=== PATIENT | male | born 1960 | race African-American/Black ===

== ENCOUNTER 2019-07-19 06:37 | Inpatient (IN) | payer OTHER ==
[2019-07-19 08:13] LABS: BASO % 0.5 % (0-2.0); EOS % 2.3 % (0-4.5); HEMATOCRIT 34.4 % (35.4-49); HEMOGLOBIN 11.3 GM/dL (11.7-16.9); LYMPH % 19.7 % (8-40); MCH 25.3 pg (25.7-33.7); MCHC 32.8 g/dl (32.0-35.9); MEAN CELL VOLUME 77.1 fl (80-96); MEAN PLT VOLUME 7.8 fl (7.5-11.1); NEUT % 67.5 % (42.8-82.8); PLATELET COUNT 256 K/MM3 (134-434); RBC 4.47 M/mm3 (4.00-5.60); RDW 14.9 % (11.9-15.9); WHITE BLOOD COUNT 7.8 K/mm3 (4.0-10.0)
--- NOTE | 2019-07-19 08:26 | PDOC ---
Documentation entered by Billy Ramsey SCRIBE, acting as scribe for Kang Infante MD. Kang Infante MD: This documentation has been prepared by the Braulio ryan Daniel, SCRIBE, under my direction and personally reviewed by me in its entirety. I confirm that the documentation accurately reflects all work, treatment, procedures, and medical decision making performed by me. History of Present Illness - General Chief Complaint: Wound Stated Complaint: L FOOT PAIN Time Seen by Provider: 07/19/19 07:29 History Source: Patient, Spouse Exam Limitations: No Limitations - History of Present Illness Initial Comments: 07/19/19 07:43 The patient is a 59 year old male with a past medical history of diabetes and HTN here today for evaluation of left foot blister. The patient reports that he developed a left foot blister 2-3 weeks ago which he attributes to walking at work and notes walking with wet socks. He notes pain in his left foot while walking and reports soaking the foot in water and epsom salt which provided no relief. Patient denies headache, lightheadedness. Denies fever, chills. Allergies: NKA Social history: Denies tobacco and alcohol use. PCP: Dilip Rodriguez Past History - Past Medical History Allergies/Adverse Reactions: Allergies Allergy/AdvReac Type Severity Reaction Status Date / Time No Known Allergies Allergy Verified 07/19/19 07:11 COPD: No Diabetes: Yes - Psycho Social/Smoking Cessation Hx Smoking History: Never smoked Review of Systems - Review of Systems Able to Perform ROS?: Yes Comments:: 07/19/19 07:43 CONSTITUTIONAL: No fever, no chills, no fatigue EYES: No visual changes ENT: No ear pain, no sore throat CARDIOVASCULAR: No chest pain, no palpitations RESPIRATORY: No cough, no SOB GI: No abdominal pain, no nausea, no vomiting, no constipation, no diarrhea GENITOURINARY: No dysuria, no frequency, no hematuria MUSKULOSKELETAL: No backpain, no joint pain, no myalgias SKIN: +left foot blister NEURO: No headache *Physical Exam - Vital Signs Last Vital Signs Temp Pulse Resp BP Pulse Ox 98.1 F 69 16 166/75 97 07/19/19 07:07 07/19/19 07:07 07/19/19 07:07 07/19/19 07:07 07/19/19 07:07 - Physical Exam Comments: 07/19/19 07:43 CONSTITUTIONAL: Well-appearing; well-nourished; in no apparent distress HEAD: Normocephalic; atraumatic EYES: PERRL; EOM intact ENMT: External appears normal; normal oropharynx NECK: Supple; non-tender; no cervical lymphadenopathy CARD: Normal S1, S2; no murmurs, rubs, or gallops RESP: Normal chest excursion with respiration; breath sounds clear and equal bilaterally; no wheezes, rhonchi, or rales ABD: Soft, non-distended; non-tender; no palpable organomegaly, no palpable hernias EXT: L. Foot: approx 7cm wound to the plantar aspect of the forefoot (below the first MTP joint), consisting of a large callus with a central ulcer, draining small amount of serous foul smelling fluid, surrounded by hemorrhagic bullae. Dorsalis pedis/tibialis posterior are +2; cap refill is within normal limits; right foot: No evidence of callus formation or ulcerations. Dorsalis pedis/tibialis posterior +2. SKIN: Warm, dry, no rash NEURO: No focal neurological deficiencies. ED Treatment Course - LABORATORY CBC & Chemistry Diagram: 07/19/19 08:00 07/19/19 08:00 - ADDITIONAL ORDERS Additional order review: 07/19/19 08:00 RBC 4.47 MCV 77.1 L MCHC 32.8 RDW 14.9 MPV 7.8 Neutrophils % 67.5 Lymphocytes % 19.7 Monocytes % 10.0 Eosinophils % 2.3 Basophils % 0.5 - RADIOLOGY Radiology Studies Ordered: Category Date Time Status CHEST - PA [RAD] Stat Radiology 07/19/19 07:41 Ordered FOOT-LEFT [RAD] Stat Radiology 07/19/19 07:39 Ordered Medical Decision Making - Medical Decision Making 07/19/19 09:18 Patient is a well-appearing 59-year-old male with history of diabetes and hypertension who presents with a large left foot diabetic wound. Patient's wound consists of a large callus with a central ulceration draining foul- smelling fluid with surrounding hemorrhagic bullae; will rule out osteomyelitis. Will obtain CBC/CMP/ESR/CRP. Will obtain left foot x-ray to evaluate for bone erosion/subcutaneous air. Likely admission for IV antibiotics. Discharge - Discharge Information Problems reviewed: Yes Clinical Impression/Diagnosis: Osteomyelitis Qualifiers: Osteomyelitis type: unspecified type Osteomyelitis location: foot Laterality: left Qualified Code(s): M86.9 - Osteomyelitis, unspecified Diabetic foot ulcer Qualifiers: Diabetic foot ulcer location: unspecified part of foot Diabetes mellitus type: other specified (including ELSI) Laterality: left Non-pressure ulcer stage: unspecified non-pressure ulcer stage Qualified Code(s): E13.621 - Other specified diabetes mellitus with foot ulcer; L97.529 - Non-pressure chronic ulcer of other part of left foot with unspecified severity Condition: Fair - Admission Yes - Follow up/Referral Referrals: Dilip Rodriguez MD [Primary Care Provider] - - Patient Discharge Instructions - Post Discharge Activity
[2019-07-19 08:38] LABS: INR 1.03 (0.83-1.09); PROTHROMBIN TIME (PATIENT) 12.2 SEC (9.7-13.0)
[2019-07-19 08:44] LABS: ALBUMIN 3.6 g/dl (3.4-5.0); BILIRUBIN,TOTAL 0.9 mg/dL (0.2-1); BLOOD UREA NITROGEN 20.6 mg/dL (7-18); CALCIUM 8.9 mg/dL (8.5-10.1); CREATININE 1.5 mg/dL (0.55-1.3); POTASSIUM 3.8 mmol/L (3.5-5.1); TOT PROT 7.5 g/dl (6.4-8.2)
[2019-07-19] MEDS ORDERED: PIPERACILLIN/TAZOB 3.375 GM 3.375 GM in DEXTROSE 5%-WATER - 50 ML IVPB ONE (10:24)
[2019-07-19] MEDS ORDERED: VANCOMYCIN HCL 1,500 MG in DEXTROSE 5%-WATER - 500 ML IVPB ONE (10:41)
[2019-07-19] MEDS ORDERED: PIPERACILLIN/TAZOB 3.375 GM 3.375 GM/50 ML BAG IVPB ONE (11:34)
[2019-07-19] MEDS ORDERED: VANCOMYCIN 1 GRAM (PRE-DOCKED) 1,000 MG/250 ML BAG IVPB ONE (12:05)
--- NOTE | 2019-07-19 12:10 | EKG ---
Test Reason : Blood Pressure : / mmHG Vent. Rate : 065 BPM Atrial Rate : 065 BPM P-R Int : 188 ms QRS Dur : 078 ms QT Int : 402 ms P-R-T Axes : 048 004 240 degrees QTc Int : 418 ms POOR DATA QUALITY, INTERPRETATION MAY BE ADVERSELY AFFECTED NORMAL SINUS RHYTHM T WAVE ABNORMALITY, CONSIDER INFEROLATERAL ISCHEMIA ABNORMAL ECG NO PREVIOUS ECGS AVAILABLE Confirmed by FRANCINE BALLESTEROS, KHALIF ([id number]) on 07/19/2019 12:09:39 PM Referred By: Confirmed By:KHALIF ESCAMILLA MD
--- NOTE | 2019-07-19 13:14 | HP ---
Admitting History and Physical - Primary Care Physician PCP: Dilip Rodriguez - Admission Chief Complaint: Left Foot Pain History of Present Illness: Patient is a 59 y/o male with past medical history of DM and HTN. Patient present to [facility] ER after having left foot pain and ulcer to bottom of left foot. Prior to ER arrival he said he did not notice that he had an ulcer. Patient states experiencing a throbbing pain to left foot over two weeks that worsened yesterday. He also states noticing a foul smell from his foot 2-3 days ago. Pain exacerbated by pressure and alleviated by Aleve. History Source: Patient Limitations to Obtaining History: No Limitations - Past Medical History Cardiovascular: Yes: HTN Endocrine: Yes: Diabetes Mellitus - Past Surgical History Past Surgical History: Yes: Cataract Removal - Smoking History Smoking history: Never smoked - Social History Usual Living Arrangement: Yes: With Spouse ADL: Independent History of Recent Travel: No Home Medications - Allergies Allergies/Adverse Reactions: Allergies Allergy/AdvReac Type Severity Reaction Status Date / Time No Known Allergies Allergy Verified 07/19/19 07:11 - Home Medications Home Medications: Ambulatory Orders Insulin (Novolog) [Novolog] 0 units SQ TID 07/19/19 Insulin Degludec [Tresiba Flextouch U-100] 60 unit SQ AM 07/19/19 Lisinopril/Hydrochlorothiazide [Lisinopril-Hctz 20-12.5 mg Tab] 1 tab ONCE 07/19 Review of Systems - Review of Systems Constitutional: reports: No Symptoms Eyes: reports: No Symptoms HENT: reports: No Symptoms Neck: reports: No Symptoms Cardiovascular: reports: No Symptoms Respiratory: reports: No Symptoms Gastrointestinal: reports: No Symptoms Genitourinary: reports: No Symptoms Breasts: reports: No Symptoms Reported Musculoskeletal: reports: No Symptoms Integumentary: reports: Wound (bottom left foot), Other (echhymosis) Neurological: reports: No Symptoms Endocrine: reports: No Symptoms Hematology/Lymphatic: reports: No Symptoms Psychiatric: reports: No Symptoms Physical Examination Vital Signs: Vital Signs Temperature 97.7 F 07/19/19 12:35 Pulse Rate 60 07/19/19 12:35 Respiratory Rate 18 07/19/19 12:35 Blood Pressure 134/73 07/19/19 12:35 O2 Sat by Pulse Oximetry (%) 96 07/19/19 12:35 Constitutional: Yes: No Distress, Calm Eyes: Yes: Conjunctiva Clear HENT: Yes: Atraumatic Cardiovascular: Yes: Regular Rate and Rhythm Respiratory: Yes: Regular, CTA Bilaterally Gastrointestinal: Yes: Normal Bowel Sounds, Soft Musculoskeletal: Yes: WNL Extremities: Yes: WNL Edema: No Integumentary: Yes: Other (wound to bottom left foot, ecchymosis and edema noted ) Wound/Incision: Yes: Open to air Neurological: Yes: Alert, Oriented Psychiatric: Yes: Alert, Oriented Labs: CBC, BMP 07/19/19 08:00 07/19/19 08:00 Problem List - Problems (1) HTN (hypertension) Assessment/Plan: -Lisinopril, HCTZ -low Na diet Code(s): I10 - ESSENTIAL (PRIMARY) HYPERTENSION (2) Diabetes mellitus Assessment/Plan: -BGM ACHS -ISS -Endocrinology consult -HgA1c -diabetic diet Code(s): E11.9 - TYPE 2 DIABETES MELLITUS WITHOUT COMPLICATIONS (3) Diabetic foot ulcer Assessment/Plan: -Podiatry consult -ID consult -received Vancomycin and Zosyn in ER -no leukocytosis -afebrile -BC and wound culture pending -foot xray pending Code(s): E11.621 - TYPE 2 DIABETES MELLITUS WITH FOOT ULCER; L97.509 - NON- PRESSURE CHRONIC ULCER OTH PRT UNSP FOOT W UNSP SEVERITY Qualifiers: Diabetic foot ulcer location: unspecified part of foot Diabetes mellitus type: other specified (including ELSI) Laterality: left Non-pressure ulcer stage: unspecified non-pressure ulcer stage Qualified Code(s): E13.621 - Other specified diabetes mellitus with foot ulcer; L97.529 - Non-pressure chronic ulcer of other part of left foot with unspecified severity (4) Osteomyelitis Assessment/Plan: -Podiatry consult -ID consult -received Vancomycin and Zosyn in ER -no leukocytosis -afebrile -BC and wound culture pending -foot xray pending Code(s): M86.9 - OSTEOMYELITIS, UNSPECIFIED Qualifiers: Osteomyelitis type: unspecified type Osteomyelitis location: foot Laterality: left Qualified Code(s): M86.9 - Osteomyelitis, unspecified Assessment/Plan see problem list dvt ppx
--- NOTE | 2019-07-19 15:23 | PN ---
Progress Note (short form) - Note Progress Note: ID consult dictated imp/reccd diabetic foot infection with abscess, r/o osteo handy need podiatry to see to drain abscess get xray of foot and MRI r/o osteo vancomycin and zosyn ordered will follow sent wound culture of the foot spoke with music composition teacher Problem List - Problems (1) Diabetic foot infection Code(s): E11.628 - TYPE 2 DIABETES MELLITUS WITH OTHER SKIN COMPLICATIONS; L08.9 - LOCAL INFECTION OF THE SKIN AND SUBCUTANEOUS TISSUE, UNSP (2) Abscess Code(s): L02.91 - CUTANEOUS ABSCESS, UNSPECIFIED (3) Renal insufficiency Code(s): N28.9 - DISORDER OF KIDNEY AND URETER, UNSPECIFIED
[2019-07-19] MEDS ORDERED: ACETAMINOPHEN 325 MG TABLET (FP) PO PRN (15:34)
[2019-07-19] MEDS ORDERED: HYDROCHLOROTHIAZIDE 25 MG TABLET (FP) ONE (15:52)
[2019-07-19] MEDS: LISINOPRIL 20 MG TABLET (FP) PO SCH (16:05)
[2019-07-19] MEDS: HYDROCHLOROTHIAZIDE 12.5 MG CAPSULE (FP) PO SCH (16:05)
--- NOTE | 2019-07-19 16:16 | CONS ---
DATE OF CONSULTATION: DATE OF DICTATION: 07/19/2019 INFECTIOUS DISEASE CONSULTATION REQUESTING PHYSICIAN: Hospitalist Service CONSULTING PHYSICIAN: Chloé Chavira M.D. HISTORY OF PRESENT ILLNESS: This is a 59-year-old man with past medical history of diabetes. He presents to the emergency room with a 3-week history of worsening callus on the plantar surface of his left foot. He got new sneakers over the weekend and developed worsening pain and edema of the leg. 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 He wears boots. He was this weekend on Wednesday went to a wedding with his , and he danced all night. He is on his feet a lot. He has no fevers or chills. He otherwise feels well. No known drug allergies. He is followed by Dr. Rodriguez as an outpatient. PAST MEDICAL HISTORY: Notable for diabetes and hypertension. SURGICAL HISTORY: Negative. ALLERGIES: No known drug allergies. MEDICATION : He takes lisinopril, hydrochlorothiazide, and insulin as an outpatient. SOCIAL HISTORY: He is not a cigarette smoker. There is no history of substance use. He is . REVIEW OF SYSTEMS: No nausea, vomiting, diarrhea, or dysuria. Symptoms are limited to his foot. He has not seen a vulcanizer rubber plate recently, and he has not been to an tool repairer recently. PHYSICAL EXAMINATION: Vital Signs: He is afebrile. Temperature 98.4, pulse is 64, blood pressure 157/71, respiratory rate 20, saturating 99%. He reports his weight is 104 kg. HEENT: Normocephalic. Eyes are anicteric. Neck: Supple. Lungs: Clear to auscultation. Heart: Regular rate and rhythm. Abdomen: Soft, nontender. Extremities: Notable for, he has bilateral dorsalis pedis pulses. On the left foot on the sole he has a callus, for which he has a small opening that is draining some seropurulent drainage. Below the callus, he has an adjacent abscess that is about 2 cm in diameter that is not drained. LABORATORY: His white count is 7.8, hemoglobin 11.3, platelets are 256, sedimentation rate is 53, INR is 1, BUN and creatinine are 20 and 1.5, CRP is 6.8. Cultures are pending. We did a wound culture of the foot. X-ray of the foot is pending as well. IMPRESSION: 1. In summary this is a 59-year-old man with a diabetic foot infection with abscess, possible osteo, and acute kidney injury with creatinine of 1.5. We need podiatry to see and drain the abscess. I spoke with Dr. Alonso, who will be in this evening to see the patient. 2. X-ray of foot and MRI are pending, will follow up. Cultures have been sent. Will continue vancomycin and Zosyn. Further recommendations to follow. CHLOÉ CHAVIRA M.D. [id number]
[2019-07-19] MEDS ORDERED: PIPERACILLIN/TAZOBACTAM 4.5 GM VIAL IVPB ONE (18:07)
[2019-07-19] MEDS ORDERED: DEXTROSE 5%-WATER 100 ML IVPB ONE (18:08)
[2019-07-19 18:18] VITALS: BMI 30.3
[2019-07-19] MEDS: PIPERACILLIN/TAZOB 4.5 GM 4.5 GM in DEXTROSE 5%-WATER 100 ML IVPB SCH (18:46)
[2019-07-19] MEDS: INSULIN SLIDING SCALE (NOVOLOG) 1 VIAL SQ SCH ×2 (18:46→21:23)
--- NOTE | 2019-07-19 19:51 | CONSULT ---
Consult Consult Specialty:: Podiatry, Kiet Alonso DPM Reason for Consultation:: Ulcer and cellulitis left plantar first metatarsal head - History of Present Illness Chief Complaint: Ulcer left foot with cellulitis History of Present Illness: Patient reports that he was admitted today with infection and ulcer inferior to the left first metatarsal head. Patient was accompanied by his during the interview. Patient reports the duration of the wound could not have been more than 2 to 3 days. 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 Patient denies any trauma and does not know how he developed the wound - History Source History Provided By: Medical Record (Medical History deferred to admitting physician.) - Past Medical History Cardio/Vascular: Yes: HTN Endocrine: Yes: Diabetes Mellitus - Past Surgical History Past Surgical History: Yes: Cataract Removal - Alcohol/Substance Use Hx Alcohol Use: No - Smoking History Smoking history: Never smoked - Social History ADL: Independent History of Recent Travel: No Home Medications - Allergies Allergies/Adverse Reactions: Allergies Allergy/AdvReac Type Severity Reaction Status Date / Time No Known Allergies Allergy Verified 07/19/19 07:11 - Home Medications Home Medications: Ambulatory Orders Insulin (Novolog) [Novolog] 0 units SQ TID 07/19/19 Insulin Degludec [Tresiba Flextouch U-100] 60 unit SQ AM 07/19/19 Lisinopril/Hydrochlorothiazide [Lisinopril-Hctz 20-12.5 mg Tab] 1 tab ONCE 07/19 Physical Exam Vital Signs: Vital Signs Temperature 98.1 F 07/19/19 18:18 Pulse Rate 70 07/19/19 18:18 Respiratory Rate 20 07/19/19 18:18 Blood Pressure 153/95 07/19/19 18:18 O2 Sat by Pulse Oximetry (%) 99 07/19/19 18:18 Extremities: Yes: Other (Patient shows high arch foot with prominence of the first and fifth metatarsals and hammering of the toes.) Peripheral Pulses WNL: Yes (Pedal pulses palpable but X-ray shows medial sclerosis of the vessels) Wound/Incision: Yes: Other (left foot plantar wound extends through superficial fascia inferior to the tibial sessamoid. the wound is undemined in the periphery approx 1cm. Joint capsule and bone are not palpable in the wound. Wound extends sub fascia proximal below the metatarsal neck and has caused 4cm ramona of full thickness necrosis. Yellow Purulence was expressed from the wound. Angel-wound tissue shows no sign of erythema, edema, temp increase. Temp gradient is normal.) Labs: CBC, BMP 07/19/19 08:00 07/19/19 08:00 Imaging - Results X-ray: Image Reviewed (Left foot x-ray was reviewed by me today. It showed medial sclerosis of foot vessels. it showed no sign of angel-ostitis or erosion of bone at the tibial sesamoid directly below the wound. 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 Local infection is noted without sign of cellulitis in the leg. Bone infection is unlikely based on x-ray of the foot and history of the duration of the wound. It is likely that the MRI will show tibial sesamoid bone marrow edema secondary to physical trauma during ambulation. Bone infection is unlikely. OR debridement is necessary as undermining and resection of full thickness necrosis proximal to the ulceration cannot be completed at the bedside. Treatment Using sterile instrumentation debridement of the wound was completed removing all overlying hyperkeratotic tissue covering the wound. Removal of viable tissue and proximal necrotic tissue could not be completed at the bedside. Swab culture was taken of yellow purulence expressed from the primary wound below the tibial sesamoid. Sterile dressing was applied to the left foot. Counseling Patient and his were counseled on the above findings. I explained that wound would need to be excised in the operating room. I explained that MRI will likely be positive but that does not mean we will be removing any bone. It does mean that we will be using [facility] and possibly IV antibiotics. I further explained the wound will be much bigger following removal of all non-viable tissue and we will institute wound healing protocols at a wound center following discharge. Plan 1. NPO after midnight. Hold diabetic medication tonight and tomorrow and give all others with sip of water. 2. BgM tomorrow at 7:00 am and prior to transport for surgery tomorrow. 2. Request sliding scale for insulin dosage from primary and follow tomorrow if blood glucose is over 250mg% 3. OR excision of wound tomorrow following medical clearance. 4. Plan to provide deep tissue culture for accurate antiobiosis following surgery. Thank you for the consultation. Kiet Alonso DPM [phone]
[2019-07-19] MEDS ORDERED: FLU VACCINE QUAD 60 MCG/0.5 ML (MDV 19-20) IM ONE (20:00)
[2019-07-19] MEDS: HEPARIN NA (PORCINE) 5,000 UNITS/ML 1ML VIAL SQ SCH (21:22)
--- NOTE | 2019-07-20 00:27 | CONSULT ---
Consult Consult Specialty:: endocrine Referred by:: becka townsend Reason for Consultation:: uncontrolled dm - History of Present Illness Chief Complaint: high sugars History of Present Illness: 59 y/o male with past medical history of T2DM and HTN. Patient presented to [facility] ER for ulcer to bottom of left foot. Patient states experiencing a throbbing pain to left foot over two weeks and has had fowel smell from the blister.he also has had elevated blood sugars,frequent urination. denies fever chills,nausea or vomiting. - Past Medical History Cardio/Vascular: Yes: HTN Endocrine: Yes: Diabetes Mellitus - Past Surgical History Past Surgical History: Yes: Cataract Removal - Alcohol/Substance Use Hx Alcohol Use: No - Smoking History Smoking history: Never smoked - Social History ADL: Independent History of Recent Travel: No Home Medications - Allergies Allergies/Adverse Reactions: Allergies Allergy/AdvReac Type Severity Reaction Status Date / Time No Known Allergies Allergy Verified 07/19/19 07:11 - Home Medications Home Medications: Ambulatory Orders Insulin (Novolog) [Novolog] 0 units SQ TID 07/19/19 Insulin Degludec [Tresiba Flextouch U-100] 60 unit SQ AM 07/19/19 Lisinopril/Hydrochlorothiazide [Lisinopril-Hctz 20-12.5 mg Tab] 1 tab ONCE 07/19 Review of Systems - Review of Systems Constitutional: reports: Weakness Eyes: reports: No Symptoms HENT: reports: No Symptoms Neck: reports: No Symptoms Cardiovascular: reports: No Symptoms Respiratory: reports: No Symptoms Gastrointestinal: reports: No Symptoms Genitourinary: reports: Frequency Integumentary: reports: No Symptoms Neurological: reports: Numbness, Weakness Endocrine: reports: No Symptoms Physical Exam Vital Signs: Vital Signs Temperature 98.3 F 07/19/19 22:17 Pulse Rate 63 07/19/19 22:17 Respiratory Rate 20 07/19/19 22:17 Blood Pressure 165/80 07/19/19 22:17 O2 Sat by Pulse Oximetry (%) 100 07/19/19 21:00 Constitutional: Yes: Anxious Eyes: Yes: EOM Intact HENT: Yes: Normocephalic Neck: Yes: Trachea Midline Cardiovascular: Yes: Regular Rate and Rhythm Respiratory: Yes: CTA Bilaterally Gastrointestinal: Yes: Normal Bowel Sounds ...Rectal Exam: Yes: Deferred Renal/: Yes: WNL Musculoskeletal: Yes: Joint Swelling, Muscle Pain, Muscle Weakness Extremities: Yes: Delayed Capillary Refill Edema: No Wound/Incision: Yes: Dressing Dry and Intact Labs: CBC, BMP 07/19/19 08:00 07/19/19 08:00 Problem List - Problems (1) Diabetes mellitus type 2 with hyperosmolarity, uncontrolled Code(s): E11.00 - TYPE 2 DIAB W HYPROSM W/O NONKET HY[facility]GLY[facility]OS [facility] E11.65 - TYPE 2 DIABETES MELLITUS WITH HYPERGLYCEMIA (2) Diabetes mellitus Code(s): E11.9 - TYPE 2 DIABETES MELLITUS WITHOUT COMPLICATIONS Qualifiers: Diabetes mellitus complication status: with diabetic arthropathy (3) Diabetic foot ulcer Code(s): E11.621 - TYPE 2 DIABETES MELLITUS WITH FOOT ULCER; L97.509 - NON- PRESSURE CHRONIC ULCER OTH PRT UNSP FOOT W UNSP SEVERITY Qualifiers: Diabetic foot ulcer location: unspecified part of foot Diabetes mellitus type: other specified (including ELSI) Laterality: left Non-pressure ulcer stage: unspecified non-pressure ulcer stage Qualified Code(s): E13.621 - Other specified diabetes mellitus with foot ulcer; L97.529 - Non-pressure chronic ulcer of other part of left foot with unspecified severity (4) HTN (hypertension) Code(s): I10 - ESSENTIAL (PRIMARY) HYPERTENSION (5) Osteomyelitis Code(s): M86.9 - OSTEOMYELITIS, UNSPECIFIED Qualifiers: Osteomyelitis type: unspecified type Osteomyelitis location: foot Laterality: left Qualified Code(s): M86.9 - Osteomyelitis, unspecified Assessment/Plan Current Active Problems Diabetes mellitus (Acute) Diabetes mellitus type 2 with hyperosmolarity, uncontrolled (Acute) Diabetic foot ulcer (Acute) HTN (hypertension) (Acute) Osteomyelitis (Acute) Abnormal Lab Results 07/19/19 07/19/19 07/19/19 08:00 08:00 08:00 Hgb 11.3 L Hct 34.4 L MCV 77.1 L MCH 25.3 L ESR Anion Gap 6 L BUN 20.6 H Creatinine 1.5 H Random Glucose 65 L C-Reactive Protein 6.8 H 07/19/19 08:00 Hgb Hct MCV MCH ESR 53 H Anion Gap BUN Creatinine Random Glucose C-Reactive Protein Laboratory Results - last 24 hr 07/19/19 07/19/19 07/19/19 08:00 08:00 08:00 WBC 7.8 RBC 4.47 Hgb 11.3 L Hct 34.4 L MCV 77.1 L MCH 25.3 L MCHC 32.8 RDW 14.9 Plt Count 256 MPV 7.8 Absolute Neuts (auto) 5.3 Neutrophils % 67.5 Lymphocytes % 19.7 Monocytes % 10.0 Eosinophils % 2.3 Basophils % 0.5 Nucleated RBC % 0 ESR PT with INR INR Sodium 139 Potassium 3.8 Chloride 104 Carbon Dioxide 29 Anion Gap 6 L BUN 20.6 H Creatinine 1.5 H Est GFR (CKD-EPI)AfAm 57.82 Est GFR (CKD-EPI)NonAf 49.88 POC Glucometer Random Glucose 65 L Calcium 8.9 Total Bilirubin 0.9 AST 20 ALT 30 Alkaline Phosphatase 75 C-Reactive Protein 6.8 H Total Protein 7.5 Albumin 3.6 07/19/19 07/19/19 07/19/19 08:00 08:00 16:48 WBC RBC Hgb Hct MCV MCH MCHC RDW Plt Count MPV Absolute Neuts (auto) Neutrophils % Lymphocytes % Monocytes % Eosinophils % Basophils % Nucleated RBC % ESR 53 H PT with INR 12.20 INR 1.03 Sodium Potassium Chloride Carbon Dioxide Anion Gap BUN Creatinine Est GFR (CKD-EPI)AfAm Est GFR (CKD-EPI)NonAf POC Glucometer 209 Random Glucose Calcium Total Bilirubin AST ALT Alkaline Phosphatase C-Reactive Protein Total Protein Albumin 07/19/19 20:53 WBC RBC Hgb Hct MCV MCH MCHC RDW Plt Count MPV Absolute Neuts (auto) Neutrophils % Lymphocytes % Monocytes % Eosinophils % Basophils % Nucleated RBC % ESR PT with INR INR Sodium Potassium Chloride Carbon Dioxide Anion Gap BUN Creatinine Est GFR (CKD-EPI)AfAm Est GFR (CKD-EPI)NonAf POC Glucometer 229 Random Glucose Calcium Total Bilirubin AST ALT Alkaline Phosphatase C-Reactive Protein Total Protein Albumin plan: bgm achs novolog scale may use levemir in place of tresiba 50 units am iv antibiotic and wound care
[2019-07-20] MEDS ORDERED: INSULIN SLIDING SCALE (NOVOLOG) 1 VIAL SQ SCH (00:30)
[2019-07-20] MEDS ORDERED: PIPERACILLIN/TAZOBACTAM 4.5 GM VIAL IVPB ONE ×3 (01:12→17:11)
[2019-07-20] MEDS ORDERED: DEXTROSE 5%-WATER 100 ML IVPB ONE ×3 (01:12→17:11)
[2019-07-20] MEDS: PIPERACILLIN/TAZOB 4.5 GM 4.5 GM in DEXTROSE 5%-WATER 100 ML IVPB SCH ×3 (01:41→17:17)
[2019-07-20] MEDS ORDERED: PATIENT'S OWN MEDICATION (NON-FORMULARY) (Insulin Degludec [Tresiba Flextouch U-100] 60 UN SQ SCH (07:00)
[2019-07-20] MEDS ORDERED: INSULIN DEGLUDEC SQ SCH (07:00)
[2019-07-20] MEDS ORDERED: INSULIN (LEVEMIR) 100 UNITS/ML UNITS SQ SCH (07:00)
[2019-07-20 09:06] LABS: BASO % 0.6 % (0-2.0); EOS % 2.2 % (0-4.5); HEMOGLOBIN 10.6 GM/dL (11.7-16.9); LYMPH % 18.9 % (8-40); MCH 25.3 pg (25.7-33.7); MCHC 33.1 g/dl (32.0-35.9); MEAN CELL VOLUME 76.3 fl (80-96); MEAN PLT VOLUME 8.4 fl (7.5-11.1); MONO % 9.1 % (3.8-10.2); NEUT % 69.2 % (42.8-82.8); PLATELET COUNT 244 K/MM3 (134-434); RBC 4.19 M/mm3 (4.00-5.60); RDW 14.8 % (11.9-15.9); WHITE BLOOD COUNT 5.9 K/mm3 (4.0-10.0)
[2019-07-20] MEDS: HYDROCHLOROTHIAZIDE 12.5 MG CAPSULE (FP) PO SCH (09:47)
[2019-07-20] MEDS: LISINOPRIL 20 MG TABLET (FP) PO SCH (09:47)
[2019-07-20] MEDS: HEPARIN NA (PORCINE) 5,000 UNITS/ML 1ML VIAL SQ SCH ×3 (09:47→22:50)
[2019-07-20 10:57] LABS: BLOOD UREA NITROGEN 21.3 mg/dL (7-18); CALCIUM 8.7 mg/dL (8.5-10.1); CREATININE 1.4 mg/dL (0.55-1.3); POTASSIUM 4.1 mmol/L (3.5-5.1)
--- NOTE | 2019-07-20 12:44 | PN ---
Progress Note, Physician Chief Complaint: DM Diabetic Foot Ulcer History of Present Illness: Previous notes and events reviewed awake and alert NAD patient is scheduled for OR today for wound debridement Lower extremity MRI done patient evaluated and is cleared for OR - Current Medication List Current Medications: Active Medications Acetaminophen (Tylenol -) 650 mg PO Q4H PRN PRN Reason: PAIN LEVEL 6-10 Heparin Sodium (Porcine) (Heparin -) 5,000 unit SQ BID [facility] Last Admin: 07/20/19 09:47 Dose: Not Given Hydrochlorothiazide (Hctz -) 12.5 mg PO DAILY [facility] Last Admin: 07/20/19 09:47 Dose: Not Given Vancomycin HCl 1,500 mg/ (Dextrose) 500 mls @ 250 mls/hr IVPB DAILY@1300 [facility]; Protocol Piperacillin Sod/Tazobactam (Sod 4.5 gm/ Dextrose) 100 mls @ 200 mls/hr IVPB Q8H-IV [facility]; Protocol Last Admin: 07/20/19 09:48 Dose: 200 mls/hr Insulin Aspart (Novolog Vial Sliding Scale -) 1 vial SQ ACHS [facility]; Protocol Last Admin: 07/20/19 06:23 Dose: Not Given Insulin Detemir (Levemir Vial) 50 units SQ AM [facility] Last Admin: 07/20/19 06:23 Dose: Not Given Lisinopril (Prinivil) 20 mg PO DAILY [facility] Last Admin: 07/20/19 09:47 Dose: 20 mg - Objective Vital Signs: Vital Signs Temperature 98.9 F 07/20/19 05:43 Pulse Rate 77 07/20/19 05:43 Respiratory Rate 20 07/20/19 05:43 Blood Pressure 125/62 07/20/19 05:43 O2 Sat by Pulse Oximetry (%) 100 07/19/19 21:00 Constitutional: Yes: No Distress, Calm Eyes: Yes: Conjunctiva Clear HENT: Yes: Atraumatic Cardiovascular: Yes: Regular Rate and Rhythm Respiratory: Yes: Regular, CTA Bilaterally Gastrointestinal: Yes: Normal Bowel Sounds, Soft Musculoskeletal: Yes: Muscle Weakness Extremities: Yes: WNL Edema: No Wound/Incision: Yes: Dressing Dry and Intact Neurological: Yes: Alert, Oriented Psychiatric: Yes: Alert, Oriented Labs: CBC, BMP 07/20/19 07:50 07/20/19 07:50 INR, PTT INR 1.03 (0.83-1.09) 07/19/19 08:00 Microbiology 07/19/19 14:40 Foot - Left Plantar Wound Culture - Preliminary Alpha Hemolytic Streptococcus Pending Organism 07/19/19 08:00 Blood - Peripheral Venous Blood Culture - Preliminary NO GROWTH OBTAINED AFTER 24 HOURS, INCUBATION TO CONTINUE FOR 4 DAYS. 07/19/19 08:00 Blood - Peripheral Venous Blood Culture - Preliminary NO GROWTH OBTAINED AFTER 24 HOURS, INCUBATION TO CONTINUE FOR 4 DAYS. Problem List - Problems (1) HTN (hypertension) Assessment/Plan: -Lisinopril, HCTZ -low Na diet Code(s): I10 - ESSENTIAL (PRIMARY) HYPERTENSION (2) Diabetes mellitus Assessment/Plan: -BGM ACHS -ISS -Endocrinology consult -HgA1c -diabetic diet Code(s): E11.9 - TYPE 2 DIABETES MELLITUS WITHOUT COMPLICATIONS Qualifiers: Diabetes mellitus complication status: with diabetic arthropathy (3) Diabetic foot ulcer Assessment/Plan: -Podiatry consult -ID consult -Vancomycin and Zosyn -no leukocytosis -afebrile -BC neg -wound culture positive -foot xray shows soft tissue infection at distal plantar aspect -CRP 6.8 -lower extremity MRI shows no evidence of osteomyelitis -patient is scheduled for OR debridement today Code(s): E11.621 - TYPE 2 DIABETES MELLITUS WITH FOOT ULCER; L97.509 - NON- PRESSURE CHRONIC ULCER OTH PRT UNSP FOOT W UNSP SEVERITY Qualifiers: Diabetic foot ulcer location: unspecified part of foot Diabetes mellitus type: other specified (including ELSI) Laterality: left Non-pressure ulcer stage: unspecified non-pressure ulcer stage Qualified Code(s): E13.621 - Other specified diabetes mellitus with foot ulcer; L97.529 - Non-pressure chronic ulcer of other part of left foot with unspecified severity (4) Osteomyelitis Code(s): M86.9 - OSTEOMYELITIS, UNSPECIFIED Qualifiers: Osteomyelitis type: unspecified type Osteomyelitis location: foot Laterality: left Qualified Code(s): M86.9 - Osteomyelitis, unspecified Assessment/Plan see problem list dvt ppx
[2019-07-20] MEDS ORDERED: VANCOMYCIN HCL 1,500 MG in DEXTROSE 5%-WATER - 500 ML IVPB SCH (13:00)
[2019-07-20] MEDS ORDERED: PT OWN MED DRAWER 7, Y5N ONE (13:31)
[2019-07-20] MEDS ORDERED: MIDAZOLAM HCL 2 MG/2 ML SINGLE DOSE VIAL ONE (14:16)
[2019-07-20] MEDS ORDERED: PROPOFOL 20 ML ONE ×2 (14:16)
[2019-07-20] MEDS ORDERED: VANCOMYCIN 1,000 MG VIAL (RESTRICTED TO ID ONLY) IVPB ONE (14:20)
[2019-07-20] MEDS ORDERED: BUPIVACAINE HCL/PF 0.5% (5 MG/ML) 30 ML VIAL IJ ONE (14:28)
[2019-07-20] MEDS ORDERED: LIDOCAINE 1%/EPI 1:100000 (20 ML MULTI DOSE VIAL) INF ONE (14:28)
[2019-07-20] MEDS ORDERED: BACITRACIN 15 GM TUBE TOPICAL OINTMENT ONE (14:41)
--- NOTE | 2019-07-20 16:42 | OP ---
DATE OF OPERATION: 07/20/2019 SURGEON: Kiet Alonso DPM PREOPERATIVE DIAGNOSIS: Abscess subcutaneous left first metatarsal plantar. POSTOPERATIVE DIAGNOSIS: Abscess subcutaneous left first metatarsal plantar. PROCEDURE: Excision of wound, incision and drainage of abscess, culture of deep tissue. Under fractional anesthesia and a surgical scrub, with Betadine scrub and solution x2, the patient was prepped using sterile technique. Inspection of the left foot plantar surface showed a 3-mm wound inferior to the tibial sesamoid of the left foot. It also showed a 3-cm soft tissue necrotic defect below the anatomic neck of the 1st metatarsal and in line with the original wound at the tibial sesamoid. Using a number 10 blade, the first metatarsal tibial sesamoid wound was addressed first. A circumferential incision was made around the wound approximately 1 cm in diameter. The incision was deepened through full thickness skin and subcutaneous tissue and superficial fascia, and the plantar tibial sesamoid wound was excised from the foot. Inspection of the tissue deep to the wound showed intact joint capsule and deep fascia with intact long flexor tendon. The long flexor tendon was not exposed in the wound. It was covered by deep fascia. Attention was then directed more proximally and a sinus tract was discovered from the original wound to the more proximal wound underneath the first metatarsal anatomic neck, so using the same number 10 surgical blade, full thickness incision was made around this necrotic wound through the superficial fascia same layer, and the necrotic tissue was excised from the foot. The entire 3-cm circular wound was removed. Inspection of the deep tissue showed no sinus tracts or fascial dissection in any direction, plantar proximal medial or lateral, so a deep tissue culture was made of the wound at the site just inferior to the tibial sesamoid. It should be noted that no purulence was noted at the site, so a tissue culture was taken, not a purulence culture. Using the power lavage system, 3000 mL of saline was used to lavage the area, and then the area was packed using a Xeroform gauze and bacitracin ointment. A dry sterile compression dressing was applied to the left foot. The patient tolerated the surgical procedure well, left the operating room stable, alert, awake, and in no pain. GRANT WAGNER/[id number]
[2019-07-20] MEDS: ACETAMINOPHEN 325 MG TABLET (FP) PO PRN (21:21)
[2019-07-20] MEDS ORDERED: LISINOPRIL 20 MG TABLET (FP) PO ONE (22:44)
[2019-07-21] MEDS ORDERED: PIPERACILLIN/TAZOBACTAM 4.5 GM VIAL IVPB ONE ×3 (00:48→17:24)
[2019-07-21] MEDS ORDERED: DEXTROSE 5%-WATER 100 ML IVPB ONE ×3 (00:48→17:24)
[2019-07-21] MEDS: PIPERACILLIN/TAZOB 4.5 GM 4.5 GM in DEXTROSE 5%-WATER 100 ML IVPB SCH ×3 (01:05→18:00)
[2019-07-21] MEDS: ACETAMINOPHEN 325 MG TABLET (FP) PO PRN (05:29)
--- NOTE | 2019-07-21 08:54 | PN ---
Progress Note (short form) - Note Progress Note: POD1 s/p left foot debridement of diabetic ulcer. PT is resting comfortably in bed, VSS, pain well controlled. No anesthetic issues/complications noted.
[2019-07-21 09:48] LABS: HEMATOCRIT 31.1 % (35.4-49); HEMOGLOBIN 10.2 GM/dL (11.7-16.9); MCH 25.2 pg (25.7-33.7); MCHC 32.9 g/dl (32.0-35.9); MEAN CELL VOLUME 76.5 fl (80-96); MEAN PLT VOLUME 8.5 fl (7.5-11.1); PLATELET COUNT 260 K/MM3 (134-434); RBC 4.07 M/mm3 (4.00-5.60); RDW 14.8 % (11.9-15.9); WHITE BLOOD COUNT 5.7 K/mm3 (4.0-10.0)
[2019-07-21 10:15] LABS: ALBUMIN 2.8 g/dl (3.4-5.0); BILIRUBIN,TOTAL 0.9 mg/dL (0.2-1); BLOOD UREA NITROGEN 21.9 mg/dL (7-18); CALCIUM 8.6 mg/dL (8.5-10.1); CREATININE 1.4 mg/dL (0.55-1.3); POTASSIUM 4.1 mmol/L (3.5-5.1); TOT PROT 6.5 g/dl (6.4-8.2)
[2019-07-21] MEDS: HYDROCHLOROTHIAZIDE 12.5 MG CAPSULE (FP) PO SCH (11:13)
[2019-07-21] MEDS: LISINOPRIL 20 MG TABLET (FP) PO SCH (11:13)
[2019-07-21] MEDS: HEPARIN NA (PORCINE) 5,000 UNITS/ML 1ML VIAL SQ SCH (11:14)
[2019-07-21] MEDS ORDERED: PT OWN MED DRAWER 7, Y5N ONE (12:09)
[2019-07-21] MEDS: VANCOMYCIN HCL 1,500 MG in DEXTROSE 5%-WATER - 500 ML IVPB SCH (12:21)
--- NOTE | 2019-07-21 14:25 | PN ---
Progress Note, Physician Chief Complaint: patient seen and examined s/p debridement of wound MRI no osteomylitis - Current Medication List Current Medications: Active Medications Acetaminophen (Tylenol -) 650 mg PO Q4H PRN PRN Reason: PAIN LEVEL 6-10 Last Admin: 07/21/19 05:29 Dose: 650 mg Heparin Sodium (Porcine) (Heparin -) 5,000 unit SQ BID [facility] Last Admin: 07/21/19 11:14 Dose: Not Given Hydrochlorothiazide (Hctz -) 12.5 mg PO DAILY [facility] Last Admin: 07/21/19 11:13 Dose: 12.5 mg Vancomycin HCl 1,500 mg/ (Dextrose) 500 mls @ 250 mls/hr IVPB DAILY@1300 [facility]; Protocol Last Admin: 07/21/19 12:21 Dose: 250 mls/hr Piperacillin Sod/Tazobactam (Sod 4.5 gm/ Dextrose) 100 mls @ 200 mls/hr IVPB Q8H-IV [facility]; Protocol Last Admin: 07/21/19 11:13 Dose: 200 mls/hr Insulin Aspart (Novolog Vial Sliding Scale -) 1 vial SQ ACHS [facility]; Protocol Lisinopril (Prinivil) 20 mg PO DAILY [facility] Last Admin: 07/21/19 11:13 Dose: 20 mg - Objective Vital Signs: Vital Signs Temperature 98.4 F 07/21/19 10:00 Pulse Rate 65 07/21/19 10:00 Respiratory Rate 16 07/21/19 10:00 Blood Pressure 154/84 07/21/19 10:00 O2 Sat by Pulse Oximetry (%) 100 07/21/19 09:00 Constitutional: Yes: Calm Cardiovascular: Yes: Regular Rate and Rhythm, S1, S2 Respiratory: Yes: CTA Bilaterally Gastrointestinal: Yes: Normal Bowel Sounds, Soft Extremities: Yes: Other (foot wrapped) Labs: CBC, BMP 07/21/19 08:35 07/21/19 08:35 INR, PTT INR 1.03 (0.83-1.09) 07/19/19 08:00 Problem List - Problems (1) Diabetes mellitus Assessment/Plan: hgba1c 11.3 bgm noted endocrine eval appreciated levemir started Code(s): E11.9 - TYPE 2 DIABETES MELLITUS WITHOUT COMPLICATIONS Qualifiers: Diabetes mellitus complication status: with diabetic arthropathy (2) Diabetic foot ulcer Assessment/Plan: debridement iv abx mri no osteo podaity on board ID on board Microbiology 07/19/19 22:15 Foot - Left Plantar Gram Stain - Final 07/19/19 14:40 Foot - Left Plantar Gram Stain - Final 07/19/19 22:15 Foot - Left Plantar Wound Culture - Preliminary Alpha Hemolytic Streptococcus 07/19/19 14:40 Foot - Left Plantar Wound Culture - Preliminary Alpha Hemolytic Streptococcus Group D Strep Or Entero Coccus Pending Organism Code(s): E11.621 - TYPE 2 DIABETES MELLITUS WITH FOOT ULCER; L97.509 - NON- PRESSURE CHRONIC ULCER OTH PRT UNSP FOOT W UNSP SEVERITY Qualifiers: Diabetic foot ulcer location: unspecified part of foot Diabetes mellitus type: other specified (including ELSI) Laterality: left Non-pressure ulcer stage: unspecified non-pressure ulcer stage Qualified Code(s): E13.621 - Other specified diabetes mellitus with foot ulcer; L97.529 - Non-pressure chronic ulcer of other part of left foot with unspecified severity (3) HTN (hypertension) Assessment/Plan: lisoinopril Code(s): I10 - ESSENTIAL (PRIMARY) HYPERTENSION (4) Renal insufficiency Assessment/Plan: renal eval Code(s): N28.9 - DISORDER OF KIDNEY AND URETER, UNSPECIFIED
--- NOTE | 2019-07-21 16:48 | CONSULT ---
Consult Consult Specialty:: Nephrology Reason for Consultation:: CKD - History of Present Illness Chief Complaint: left foot blister History of Present Illness: Pt is a 59 year old male with pmhx of dm and htn who presents to the ER with a left foot blister. He had a debridement done. I was called to evaluate him for CKD. He was found to have elevated fan balancer that did not improve. He does use NSAIds at times. He denies dysuria or hematuria. He denies shortness of breath or palpitations. He has a family hx of DM but denies family history of kidney disease. - History Source History Provided By: Patient, Medical Record - Past Medical History Cardio/Vascular: Yes: HTN Endocrine: Yes: Diabetes Mellitus - Past Surgical History Past Surgical History: Yes: Cataract Removal - Alcohol/Substance Use Hx Alcohol Use: No - Smoking History Smoking history: Never smoked - Social History ADL: Independent History of Recent Travel: No Home Medications - Allergies Allergies/Adverse Reactions: Allergies Allergy/AdvReac Type Severity Reaction Status Date / Time No Known Allergies Allergy Verified 07/19/19 07:11 - Home Medications Home Medications: Ambulatory Orders Insulin (Novolog) [Novolog] 0 units SQ TID 07/19/19 Insulin Degludec [Tresiba Flextouch U-100] 60 unit SQ AM 07/19/19 Lisinopril/Hydrochlorothiazide [Lisinopril-Hctz 20-12.5 mg Tab] 1 tab ONCE 07/19 Family Medical History Family Hx Diabetes: Mother, Father, Brother Review of Systems - Review of Systems Constitutional: reports: No Symptoms Eyes: reports: No Symptoms HENT: reports: No Symptoms Neck: reports: No Symptoms Cardiovascular: reports: No Symptoms Respiratory: reports: No Symptoms Gastrointestinal: reports: No Symptoms Genitourinary: reports: No Symptoms Musculoskeletal: reports: Other (left foot ulcer) Neurological: reports: No Symptoms Endocrine: reports: No Symptoms Hematology/Lymphatic: reports: No Symptoms Psychiatric: reports: No Symptoms Physical Exam Vital Signs: Vital Signs Temperature 97.6 F 07/21/19 15:01 Pulse Rate 66 07/21/19 15:01 Respiratory Rate 16 07/21/19 10:00 Blood Pressure 154/74 07/21/19 15:01 O2 Sat by Pulse Oximetry (%) 100 07/21/19 09:00 Constitutional: Yes: Calm Eyes: Yes: Conjunctiva Clear HENT: Yes: Atraumatic Neck: Yes: Supple Cardiovascular: Yes: S1, S2 Respiratory: Yes: CTA Bilaterally Gastrointestinal: Yes: Normal Bowel Sounds, Soft Musculoskeletal: Yes: WNL Edema: No Wound/Incision: Yes: Dressing Dry and Intact Neurological: Yes: Oriented Labs: CBC, BMP 07/21/19 08:35 07/21/19 08:35 Imaging - Results Chest X-ray: Report Reviewed Problem List - Problems (1) Diabetes mellitus Code(s): E11.9 - TYPE 2 DIABETES MELLITUS WITHOUT COMPLICATIONS Qualifiers: Diabetes mellitus complication status: with diabetic arthropathy (2) HTN (hypertension) Code(s): I10 - ESSENTIAL (PRIMARY) HYPERTENSION (3) Renal insufficiency Code(s): N28.9 - DISORDER OF KIDNEY AND URETER, UNSPECIFIED Assessment/Plan Current Medications Generic Name Dose Route Start Last Admin Trade Name Freq PRN Reason Stop Dose Admin Acetaminophen 650 mg 07/20/19 15:49 07/21/19 05:29 Tylenol - PO 650 mg Q4H PRN Administration PAIN LEVEL 6-10 Heparin Sodium (Porcine) 5,000 unit 07/20/19 22:00 07/21/19 11:14 Heparin - SQ Not Given BID [facility] Hydrochlorothiazide 12.5 mg 07/21/19 10:00 07/21/19 11:13 Hctz - PO 12.5 mg DAILY [facility] Administration Vancomycin HCl 1,500 mg/ 500 mls @ 250 mls/hr 07/21/19 13:00 07/21/19 12:21 Dextrose IVPB 250 mls/hr DAILY@1300 [facility] Administration Protocol Piperacillin Sod/Tazobactam 100 mls @ 200 mls/hr 07/20/19 18:00 07/21/19 11: 13 Sod 4.5 gm/ Dextrose IVPB 200 mls/hr Q8H-IV [facility] Administration Protocol Insulin Aspart 1 vial 07/21/19 16:30 Novolog Vial Sliding Scale - SQ ACHS [facility] Protocol Insulin Detemir 30 units 07/22/19 07:00 Levemir Vial SQ AM [facility] Lisinopril 20 mg 07/21/19 10:00 07/21/19 11:13 Prinivil PO 20 mg DAILY [facility] Administration Impression 1. CKD 2. HTN 3. DM 4. DFU Plan - check renal ultrasound - check ua - send prt to fan balancer ration - repeat labs in am - avoid nsaids
[2019-07-21] MEDS: INSULIN SLIDING SCALE (NOVOLOG) 1 VIAL SQ SCH ×2 (16:55→22:04)
--- NOTE | 2019-07-21 17:58 | PN ---
Progress Note (short form) - Note Progress Note: s/p operative debridement of the foot abscess yesterday no fevers Vital Signs Period Temp Pulse Resp BP Sys/Tran Pulse Ox Last 24 Hr 97.6 F-98.4 F 65-67 16-20 149-195/74-95 100-100 cor-rrr lungs clear abd soft,nt ext dressing intact-postop CBC, BMP 07/21/19 08:35 07/21/19 08:35 Microbiology 07/21/19 14:38 Tissue-Other Gram Stain - Final 07/19/19 14:40 Foot - Left Plantar Gram Stain - Final 07/19/19 14:40 Foot - Left Plantar Wound Culture - Preliminary Alpha Hemolytic Streptococcus Group D Strep Or Entero Coccus Pending Organism 07/19/19 22:15 Foot - Left Plantar Gram Stain - Final 07/19/19 22:15 Foot - Left Plantar Wound Culture - Preliminary Alpha Hemolytic Streptococcus 07/19/19 08:00 Blood - Peripheral Venous Blood Culture - Preliminary NO GROWTH OBTAINED AFTER 48 HOURS, INCUBATION TO CONTINUE FOR 3 DAYS. 07/19/19 08:00 Blood - Peripheral Venous Blood Culture - Preliminary NO GROWTH OBTAINED AFTER 48 HOURS, INCUBATION TO CONTINUE FOR 3 DAYS. MRI- no osteo imp/reccd diabetic foot infection with abscess-s/p drainage, f/u operative cultures vanco/zosyn poorly controlled DM, hgbaic over 10 need podiatry to see to drain abscess get xray of foot and MRI r/o osteo vancomycin and zosyn ordered will follow sent wound culture of the foot spoke with first leveler
[2019-07-21 18:17] LABS: URINE APPEARANCE CLEAR; URINE BILIRUBIN NEGATIVE (NEGATIVE); URINE COLOR YELLOW; URINE GLUCOSE (UA) NEGATIVE (NEGATIVE); URINE KETONE NEGATIVE (NEGATIVE); URINE LEUK ESTERASE NEGATIVE (NEGATIVE); URINE NITRITE NEGATIVE (NEGATIVE); URINE PROTEIN TRACE (NEGATIVE)
--- NOTE | 2019-07-21 22:05 | PN ---
Progress Note, Physician Chief Complaint: Ulceration inferior to the left first metatarsal head History of Present Illness: Patient underwent surgical excision of necrotic skin and subcutaneous tissue inferior to the left first metatarsal yesterday 07/20/2019 in the OR by me. No sign of deep tissue extension of the sub-superficial fascia abscess was found. Patient reports no adverse symptoms. He reports that his left lower extremity edema is resolved and he has no significant pain today. Nursing reported bleeding soaking through the bandage so the patient was placed on bedrest and heparin was temporarily discontinued. - Current Medication List Current Medications: Active Medications Acetaminophen (Tylenol -) 650 mg PO Q4H PRN PRN Reason: PAIN LEVEL 6-10 Last Admin: 07/21/19 05:29 Dose: 650 mg Heparin Sodium (Porcine) (Heparin -) 5,000 unit SQ BID [facility] Last Admin: 07/21/19 11:14 Dose: Not Given Hydrochlorothiazide (Hctz -) 12.5 mg PO DAILY [facility] Last Admin: 07/21/19 11:13 Dose: 12.5 mg Vancomycin HCl 1,500 mg/ (Dextrose) 500 mls @ 250 mls/hr IVPB DAILY@1300 [facility]; Protocol Last Admin: 07/21/19 12:21 Dose: 250 mls/hr Piperacillin Sod/Tazobactam (Sod 4.5 gm/ Dextrose) 100 mls @ 200 mls/hr IVPB Q8H-IV [facility]; Protocol Last Admin: 07/21/19 18:00 Dose: 200 mls/hr Insulin Aspart (Novolog Vial Sliding Scale -) 1 vial SQ ACHS [facility]; Protocol Last Admin: 07/21/19 16:55 Dose: 4 units Insulin Detemir (Levemir Vial) 30 units SQ AM [facility] Lisinopril (Prinivil) 20 mg PO DAILY [facility] Last Admin: 07/21/19 11:13 Dose: 20 mg - Objective Vital Signs: Vital Signs Temperature 97.6 F 07/21/19 15:01 Pulse Rate 66 07/21/19 15:01 Respiratory Rate 16 07/21/19 10:00 Blood Pressure 154/74 07/21/19 15:01 O2 Sat by Pulse Oximetry (%) 100 07/21/19 09:00 Edema: No (resolved) Peripheral Pulses WNL: Yes Wound/Incision: Yes: Other (Left fist metatarsal wound measures 6.0cm long, 2.8cm wide and 0.6cm deep. Base of the wound is red granulation tissue and coagulated blood. Deep fascia covering flexor tendon is not visable in the wound. No angel-wound inflammation is present. Normal skin temp and temp gradient are present. Active bleeding is resolved.) Labs: CBC, BMP 07/21/19 08:35 07/21/19 08:35 INR, PTT INR 1.03 (0.83-1.09) 07/19/19 08:00 - ....Imaging MRI: Image Reviewed (MRI image of the first metatarsal and tibial sesamoid were reviewed by no. No sign of pathology noted in these structures or the surrounding plantar plate ligament structures. Wound is visualized.) Assessment/Plan Assessment Normal appearance of the left foot following wound excision. All signs and symptoms of cellulitis and wound infection seem to have resolved. MRI shows no sign of deep tissue infection. Direct observation of the tissue during surgery yesterday confirms this assessment. Plan Semi-weight bearing with crutches ordered to offload the debrided left foot wound. Oral antibiotics to be prescribed by Dr. Lund or associate. Discharged permitted following medical clearance. Follow up wound care will be provided by my on discharge.
[2019-07-22] MEDS ORDERED: PIPERACILLIN/TAZOBACTAM 4.5 GM VIAL IVPB ONE ×3 (02:45→16:24)
[2019-07-22] MEDS ORDERED: DEXTROSE 5%-WATER 100 ML IVPB ONE ×3 (02:45→16:25)
[2019-07-22] MEDS: PIPERACILLIN/TAZOB 4.5 GM 4.5 GM in DEXTROSE 5%-WATER 100 ML IVPB SCH ×3 (02:50→17:19)
[2019-07-22] MEDS: INSULIN SLIDING SCALE (NOVOLOG) 1 VIAL SQ SCH ×4 (06:38→21:46)
[2019-07-22] MEDS ORDERED: INSULIN (NOVOLOG) ASPART 100 UNITS/ML 10ML VIAL ONE (06:53)
[2019-07-22] MEDS ORDERED: INSULIN (LEVEMIR) 100 UNITS/ML UNITS SQ ONE (06:54)
[2019-07-22] MEDS ORDERED: INSULIN (LEVEMIR) 100 UNITS/ML UNITS SQ SCH (07:00)
[2019-07-22] MEDS: LISINOPRIL 20 MG TABLET (FP) PO SCH (09:23)
[2019-07-22] MEDS: HEPARIN NA (PORCINE) 5,000 UNITS/ML 1ML VIAL SQ SCH ×2 (09:23→21:46)
[2019-07-22] MEDS: HYDROCHLOROTHIAZIDE 12.5 MG CAPSULE (FP) PO SCH (09:23)
[2019-07-22 11:00] LABS: BASO % 0.7 % (0-2.0); EOS % 3.4 % (0-4.5); HEMATOCRIT 30.1 % (35.4-49); HEMOGLOBIN 10.1 GM/dL (11.7-16.9); LYMPH % 22.6 % (8-40); MCH 25.5 pg (25.7-33.7); MCHC 33.5 g/dl (32.0-35.9); MEAN CELL VOLUME 76.3 fl (80-96); MEAN PLT VOLUME 8.3 fl (7.5-11.1); MONO % 11.2 % (3.8-10.2); NEUT % 62.1 % (42.8-82.8); PLATELET COUNT 280 K/MM3 (134-434); RBC 3.94 M/mm3 (4.00-5.60); RDW 14.8 % (11.9-15.9); WHITE BLOOD COUNT 4.7 K/mm3 (4.0-10.0)
[2019-07-22 11:23] LABS: ALBUMIN 2.7 g/dl (3.4-5.0); BILIRUBIN,TOTAL 0.7 mg/dL (0.2-1); BLOOD UREA NITROGEN 20.6 mg/dL (7-18); CALCIUM 8.6 mg/dL (8.5-10.1); CREATININE 1.5 mg/dL (0.55-1.3); POTASSIUM 4.1 mmol/L (3.5-5.1); TOT PROT 6.7 g/dl (6.4-8.2)
--- NOTE | 2019-07-22 13:02 | PN ---
Progress Note, Physician Chief Complaint: AWAKE ALERT EVENTS REVIEWED NO FEVER OR CHILLS - Current Medication List Current Medications: Active Medications Acetaminophen (Tylenol -) 650 mg PO Q4H PRN PRN Reason: PAIN LEVEL 6-10 Last Admin: 07/21/19 05:29 Dose: 650 mg Bacitracin (Bacitracin -) 1 applic TP DAILY [facility] Heparin Sodium (Porcine) (Heparin -) 5,000 unit SQ BID [facility] Last Admin: 07/22/19 09:23 Dose: 5,000 unit Hydrochlorothiazide (Hctz -) 12.5 mg PO DAILY [facility] Last Admin: 07/22/19 09:23 Dose: 12.5 mg Vancomycin HCl 1,500 mg/ (Dextrose) 500 mls @ 250 mls/hr IVPB DAILY@1300 [facility]; Protocol Last Admin: 07/21/19 12:21 Dose: 250 mls/hr Piperacillin Sod/Tazobactam (Sod 4.5 gm/ Dextrose) 100 mls @ 200 mls/hr IVPB Q8H-IV [facility]; Protocol Last Admin: 07/22/19 09:24 Dose: 200 mls/hr Insulin Aspart (Novolog Vial Sliding Scale -) 1 vial SQ ACHS [facility]; Protocol Last Admin: 07/22/19 11:44 Dose: 4 units Insulin Detemir (Levemir Vial) 30 units SQ AM [facility] Last Admin: 07/22/19 06:38 Dose: 30 units Lisinopril (Prinivil) 20 mg PO DAILY [facility] Last Admin: 07/22/19 09:23 Dose: 20 mg - Objective Vital Signs: Vital Signs Temperature 98.4 F 07/22/19 09:20 Pulse Rate 68 07/22/19 09:20 Respiratory Rate 16 07/22/19 09:20 Blood Pressure 131/102 H 07/22/19 09:20 O2 Sat by Pulse Oximetry (%) 98 07/22/19 09:25 Constitutional: Yes: No Distress Cardiovascular: Yes: Regular Rate and Rhythm Respiratory: Yes: WNL Gastrointestinal: Yes: WNL Genitourinary: Yes: WNL Musculoskeletal: Yes: WNL Extremities: Yes: Deformity Integumentary: Yes: Pressure Ulcer Wound/Incision: Yes: Dressing Dry and Intact Neurological: Yes: Pre-Existing Deficit ...Motor Strength: LLE Psychiatric: Yes: Other Labs: CBC, BMP 07/22/19 09:50 07/22/19 09:50 INR, PTT INR 1.03 (0.83-1.09) 07/19/19 08:00 Problem List - Problems (1) Diabetes mellitus Code(s): E11.9 - TYPE 2 DIABETES MELLITUS WITHOUT COMPLICATIONS Qualifiers: Diabetes mellitus complication status: with diabetic arthropathy (2) Diabetic foot ulcer Code(s): E11.621 - TYPE 2 DIABETES MELLITUS WITH FOOT ULCER; L97.509 - NON- PRESSURE CHRONIC ULCER OTH PRT UNSP FOOT W UNSP SEVERITY Qualifiers: Diabetic foot ulcer location: unspecified part of foot Diabetes mellitus type: other specified (including ELSI) Laterality: left Non-pressure ulcer stage: unspecified non-pressure ulcer stage Qualified Code(s): E13.621 - Other specified diabetes mellitus with foot ulcer; L97.529 - Non-pressure chronic ulcer of other part of left foot with unspecified severity (3) HTN (hypertension) Code(s): I10 - ESSENTIAL (PRIMARY) HYPERTENSION (4) Renal insufficiency Code(s): N28.9 - DISORDER OF KIDNEY AND URETER, UNSPECIFIED Assessment/Plan DR WISDOM DEBRIDED LEFT FOOT NECROTIC TISSUE AND BLISTEERRS FOLLOW UP IS APPRECIATED. IV ABX PER ID DM CONTROLL D/W PATIENT [facility] F/U DVT PROPHYLAXIS OOB TO CHAIR
[2019-07-22] MEDS: VANCOMYCIN HCL 1,500 MG in DEXTROSE 5%-WATER - 500 ML IVPB SCH (13:18)
--- NOTE | 2019-07-22 15:15 | PN ---
Progress Note, Physician History of Present Illness: AWAKE, ALERT IN BED NO C/O FOOT PAIN NO FEVER/CHILLS TOLERATING ANTIBIOTICS C/S PENDING MRI NO OSTEO - Current Medication List Current Medications: Active Medications Acetaminophen (Tylenol -) 650 mg PO Q4H PRN PRN Reason: PAIN LEVEL 6-10 Last Admin: 07/21/19 05:29 Dose: 650 mg Bacitracin (Bacitracin -) 1 applic TP DAILY [facility] Heparin Sodium (Porcine) (Heparin -) 5,000 unit SQ BID [facility] Last Admin: 07/22/19 09:23 Dose: 5,000 unit Hydrochlorothiazide (Hctz -) 12.5 mg PO DAILY [facility] Last Admin: 07/22/19 09:23 Dose: 12.5 mg Vancomycin HCl 1,500 mg/ (Dextrose) 500 mls @ 250 mls/hr IVPB DAILY@1300 [facility]; Protocol Last Admin: 07/22/19 13:18 Dose: 250 mls/hr Piperacillin Sod/Tazobactam (Sod 4.5 gm/ Dextrose) 100 mls @ 200 mls/hr IVPB Q8H-IV [facility]; Protocol Last Admin: 07/22/19 09:24 Dose: 200 mls/hr Insulin Aspart (Novolog Vial Sliding Scale -) 1 vial SQ ACHS [facility]; Protocol Last Admin: 07/22/19 11:44 Dose: 4 units Insulin Detemir (Levemir Vial) 30 units SQ AM [facility] Last Admin: 07/22/19 06:38 Dose: 30 units Lisinopril (Prinivil) 20 mg PO DAILY [facility] Last Admin: 07/22/19 09:23 Dose: 20 mg - Objective Vital Signs: Vital Signs Temperature 98.4 F 07/22/19 09:20 Pulse Rate 68 07/22/19 09:20 Respiratory Rate 16 07/22/19 09:20 Blood Pressure 131/102 H 07/22/19 09:20 O2 Sat by Pulse Oximetry (%) 98 07/22/19 09:25 Constitutional: Yes: No Distress Cardiovascular: Yes: Regular Rate and Rhythm, S1, S2 Respiratory: Yes: CTA Bilaterally Gastrointestinal: Yes: Normal Bowel Sounds, Soft Extremities: Yes: Other (DRESSING IN PLACE, FOOT) Labs: CBC, BMP 07/22/19 09:50 07/22/19 09:50 INR, PTT INR 1.03 (0.83-1.09) 07/19/19 08:00 Assessment/Plan S/P DEBRIDEMENT, FOOT + WOUND C/S POLYMICROBIAL AZOTEMIA AWAIT FINAL C/S CONTINUE ZOSYN/ VANCOMYCIN LOCAL WOUND CARE
[2019-07-22] MEDS: BACITRACIN 15 GM TUBE TOPICAL OINTMENT TP SCH (16:00)
--- NOTE | 2019-07-22 19:39 | PN ---
Progress Note, Physician Chief Complaint: has pain in wound sight other [place] no complaint - Current Medication List Current Medications: Active Medications Acetaminophen (Tylenol -) 650 mg PO Q4H PRN PRN Reason: PAIN LEVEL 6-10 Last Admin: 07/21/19 05:29 Dose: 650 mg Bacitracin (Bacitracin -) 1 applic TP DAILY [facility] Last Admin: 07/22/19 16:00 Dose: 1 applic Heparin Sodium (Porcine) (Heparin -) 5,000 unit SQ BID [facility] Last Admin: 07/22/19 09:23 Dose: 5,000 unit Hydrochlorothiazide (Hctz -) 12.5 mg PO DAILY [facility] Last Admin: 07/22/19 09:23 Dose: 12.5 mg Vancomycin HCl 1,500 mg/ (Dextrose) 500 mls @ 250 mls/hr IVPB DAILY@1300 [facility]; Protocol Last Admin: 07/22/19 13:18 Dose: 250 mls/hr Piperacillin Sod/Tazobactam (Sod 4.5 gm/ Dextrose) 100 mls @ 200 mls/hr IVPB Q8H-IV [facility]; Protocol Last Admin: 07/22/19 17:19 Dose: 200 mls/hr Insulin Aspart (Novolog Vial Sliding Scale -) 1 vial SQ ACHS [facility]; Protocol Last Admin: 07/22/19 16:44 Dose: 4 units Insulin Detemir (Levemir Vial) 30 units SQ AM [facility] Last Admin: 07/22/19 06:38 Dose: 30 units Lisinopril (Prinivil) 20 mg PO DAILY [facility] Last Admin: 07/22/19 09:23 Dose: 20 mg - Objective Vital Signs: Vital Signs Temperature 98.4 F 07/22/19 09:20 Pulse Rate 68 07/22/19 09:20 Respiratory Rate 16 07/22/19 09:20 Blood Pressure 131/102 H 07/22/19 09:20 O2 Sat by Pulse Oximetry (%) 98 07/22/19 09:25 Constitutional: Yes: Calm Eyes: Yes: EOM Intact HENT: Yes: Normocephalic Neck: Yes: Trachea Midline Cardiovascular: Yes: Regular Rate and Rhythm Respiratory: Yes: Regular Gastrointestinal: Yes: Normal Bowel Sounds ...Rectal Exam: Yes: Deferred Genitourinary: Yes: WNL Musculoskeletal: Yes: WNL Extremities: Yes: WNL Edema: No Integumentary: Yes: Onychomycosis Wound/Incision: Yes: Dressing Dry and Intact Neurological: Yes: Alert, Oriented Labs: CBC, BMP 07/22/19 09:50 07/22/19 09:50 INR, PTT INR 1.03 (0.83-1.09) 07/19/19 08:00 Problem List - Problems (1) Diabetes mellitus type 2 with hyperosmolarity, uncontrolled Code(s): E11.00 - TYPE 2 DIAB W HYPROSM W/O NONKET HYPRGLY-HYPROS COMA ([facility]); E11.65 - TYPE 2 DIABETES MELLITUS WITH HYPERGLYCEMIA (2) Diabetes mellitus Code(s): E11.9 - TYPE 2 DIABETES MELLITUS WITHOUT COMPLICATIONS Qualifiers: Diabetes mellitus complication status: with diabetic arthropathy (3) Diabetic foot ulcer Code(s): E11.621 - TYPE 2 DIABETES MELLITUS WITH FOOT ULCER; L97.509 - NON- PRESSURE CHRONIC ULCER OTH PRT UNSP FOOT W UNSP SEVERITY Qualifiers: Diabetic foot ulcer location: unspecified part of foot Diabetes mellitus type: other specified (including ELSI) Laterality: left Non-pressure ulcer stage: unspecified non-pressure ulcer stage Qualified Code(s): E13.621 - Other specified diabetes mellitus with foot ulcer; L97.529 - Non-pressure chronic ulcer of other part of left foot with unspecified severity (4) HTN (hypertension) Code(s): I10 - ESSENTIAL (PRIMARY) HYPERTENSION (5) Osteomyelitis Code(s): M86.9 - OSTEOMYELITIS, UNSPECIFIED Qualifiers: Osteomyelitis type: unspecified type Osteomyelitis location: foot Laterality: left Qualified Code(s): M86.9 - Osteomyelitis, unspecified Assessment/Plan Current Active Problems Diabetes mellitus (Acute) Diabetes mellitus type 2 with hyperosmolarity, uncontrolled (Acute) Diabetic foot ulcer (Acute) HTN (hypertension) (Acute) Osteomyelitis (Acute) Renal insufficiency (Acute) Abnormal Lab Results 07/22/19 07/22/19 09:50 09:50 RBC 3.94 L Hgb 10.1 L Hct 30.1 L MCV 76.3 L MCH 25.5 L Monocytes % 11.2 H BUN 20.6 H Creatinine 1.5 H Random Glucose 254 H AST 12 L Albumin 2.7 L HDL Cholesterol 32 L Laboratory Results - last 24 hr 07/21/19 07/22/1919 22:02 06:37 09:50 WBC 4.7 RBC 3.94 L Hgb 10.1 L Hct 30.1 L MCV 76.3 L MCH 25.5 L MCHC 33.5 RDW 14.8 Plt Count 280 MPV 8.3 Absolute Neuts (auto) 2.9 Neutrophils % 62.1 Lymphocytes % 22.6 Monocytes % 11.2 H Eosinophils % 3.4 Basophils % 0.7 Nucleated RBC % 0 Sodium Potassium Chloride Carbon Dioxide Anion Gap BUN Creatinine Est GFR (CKD-EPI)AfAm Est GFR (CKD-EPI)NonAf POC Glucometer 247 201 Random Glucose Calcium Total Bilirubin AST ALT Alkaline Phosphatase Total Protein Albumin Triglycerides Cholesterol Total LDL Cholesterol HDL Cholesterol 07/22/19 07/22/19 07/22/19 09:50 11:43 16:13 WBC RBC Hgb Hct MCV MCH MCHC RDW Plt Count MPV Absolute Neuts (auto) Neutrophils % Lymphocytes % Monocytes % Eosinophils % Basophils % Nucleated RBC % Sodium 136 Potassium 4.1 Chloride 101 Carbon Dioxide 27 Anion Gap 8 BUN 20.6 H Creatinine 1.5 H Est GFR (CKD-EPI)AfAm 57.82 Est GFR (CKD-EPI)NonAf 49.88 POC Glucometer 291 257 Random Glucose 254 H Calcium 8.6 Total Bilirubin 0.7 AST 12 L ALT 18 Alkaline Phosphatase 62 Total Protein 6.7 Albumin 2.7 L Triglycerides 128 Cholesterol 148 Total LDL Cholesterol 93 HDL Cholesterol 32 L plan; bgm qid novolog scale levemir 50 units am daily wound care iv antibiotics
--- NOTE | 2019-07-22 20:47 | PN ---
Progress Note (short form) - Note Progress Note: 1. CKD 2. HTN 3. DM 4. DFU Current Medications Acetaminophen (Tylenol -) 650 mg PO Q4H PRN PRN Reason: PAIN LEVEL 6-10 Last Admin: 07/21/19 05:29 Dose: 650 mg Bacitracin (Bacitracin -) 1 applic TP DAILY [facility] Last Admin: 07/22/19 16:00 Dose: 1 applic Heparin Sodium (Porcine) (Heparin -) 5,000 unit SQ BID [facility] Last Admin: 07/22/19 09:23 Dose: 5,000 unit Hydrochlorothiazide (Hctz -) 12.5 mg PO DAILY [facility] Last Admin: 07/22/19 09:23 Dose: 12.5 mg Vancomycin HCl 1,500 mg/ (Dextrose) 500 mls @ 250 mls/hr IVPB DAILY@1300 [facility]; Protocol Last Admin: 07/22/19 13:18 Dose: 250 mls/hr Piperacillin Sod/Tazobactam (Sod 4.5 gm/ Dextrose) 100 mls @ 200 mls/hr IVPB Q8H-IV [facility]; Protocol Last Admin: 07/22/19 17:19 Dose: 200 mls/hr Insulin Aspart (Novolog Vial Sliding Scale -) 1 vial SQ ACHS [facility]; Protocol Insulin Detemir (Levemir Vial) 50 units SQ AM [facility] Lisinopril (Prinivil) 20 mg PO DAILY [facility] Last Admin: 07/22/19 09:23 Dose: 20 mg Last Vital Signs Temp Pulse Resp BP Pulse Ox 98.4 F 68 16 131/102 H 98 07/22/19 09:20 07/22/19 09:20 07/22/19 09:20 07/22/19 09:20 07/22/19 09:25 CBC, BMP 07/22/19 09:50 07/22/19 09:50
[2019-07-23] MEDS ORDERED: PIPERACILLIN/TAZOBACTAM 4.5 GM VIAL IVPB ONE ×3 (01:37→16:18)
[2019-07-23] MEDS ORDERED: DEXTROSE 5%-WATER 100 ML IVPB ONE ×3 (01:37→16:18)
[2019-07-23] MEDS: PIPERACILLIN/TAZOB 4.5 GM 4.5 GM in DEXTROSE 5%-WATER 100 ML IVPB SCH ×3 (01:46→17:03)
[2019-07-23] MEDS: INSULIN SLIDING SCALE (NOVOLOG) 1 VIAL SQ SCH ×4 (06:37→21:00)
[2019-07-23] MEDS: INSULIN (LEVEMIR) 100 UNITS/ML UNITS SQ SCH (06:37)
[2019-07-23 07:52] LABS: HEMATOCRIT 30.5 % (35.4-49); MCH 25.2 pg (25.7-33.7); MCHC 32.8 g/dl (32.0-35.9); MEAN CELL VOLUME 76.9 fl (80-96); PLATELET COUNT 292 K/MM3 (134-434); RBC 3.97 M/mm3 (4.00-5.60); RDW 14.9 % (11.9-15.9); WHITE BLOOD COUNT 5.2 K/mm3 (4.0-10.0)
[2019-07-23 08:04] LABS: BLOOD UREA NITROGEN 19.8 mg/dL (7-18); CALCIUM 8.8 mg/dL (8.5-10.1); CREATININE 1.4 mg/dL (0.55-1.3); POTASSIUM 4.1 mmol/L (3.5-5.1)
[2019-07-23] MEDS: HEPARIN NA (PORCINE) 5,000 UNITS/ML 1ML VIAL SQ SCH ×2 (09:08→21:02)
[2019-07-23] MEDS: BACITRACIN 15 GM TUBE TOPICAL OINTMENT TP SCH (09:08)
[2019-07-23] MEDS: LISINOPRIL 20 MG TABLET (FP) PO SCH (09:08)
[2019-07-23] MEDS: HYDROCHLOROTHIAZIDE 12.5 MG CAPSULE (FP) PO SCH (09:08)
[2019-07-23] MEDS ORDERED: INSULIN (NOVOLOG) ASPART 100 UNITS/ML 10ML VIAL ONE ×2 (11:30→18:17)
[2019-07-23] MEDS ORDERED: PT OWN MED DRAWER 7, Y5N ONE ×5 (12:26→21:20)
[2019-07-23] MEDS: VANCOMYCIN HCL 1,500 MG in DEXTROSE 5%-WATER - 500 ML IVPB SCH (12:30)
--- NOTE | 2019-07-23 19:11 | PN ---
Progress Note, Physician Chief Complaint: AWAKE ALERT DENIES FEVER OR CHILLS - Current Medication List Current Medications: Active Medications Acetaminophen (Tylenol -) 650 mg PO Q4H PRN PRN Reason: PAIN LEVEL 6-10 Last Admin: 07/21/19 05:29 Dose: 650 mg Bacitracin (Bacitracin -) 1 applic TP DAILY [facility] Last Admin: 07/23/19 09:08 Dose: 1 applic Heparin Sodium (Porcine) (Heparin -) 5,000 unit SQ BID [facility] Last Admin: 07/23/19 09:08 Dose: 5,000 unit Hydrochlorothiazide (Hctz -) 12.5 mg PO DAILY [facility] Last Admin: 07/23/19 09:08 Dose: 12.5 mg Vancomycin HCl 1,500 mg/ (Dextrose) 500 mls @ 250 mls/hr IVPB DAILY@1300 [facility]; Protocol Last Admin: 07/23/19 12:30 Dose: 250 mls/hr Piperacillin Sod/Tazobactam (Sod 4.5 gm/ Dextrose) 100 mls @ 200 mls/hr IVPB Q8H-IV [facility]; Protocol Last Admin: 07/23/19 17:03 Dose: 200 mls/hr Insulin Aspart (Novolog Vial Sliding Scale -) 1 vial SQ ACHS [facility]; Protocol Last Admin: 07/23/19 17:02 Dose: 5 units Insulin Detemir (Levemir Vial) 50 units SQ AM [facility] Last Admin: 07/23/19 06:37 Dose: 50 units Lisinopril (Prinivil) 20 mg PO DAILY [facility] Last Admin: 07/23/19 09:08 Dose: 20 mg - Objective Vital Signs: Vital Signs Temperature 98.2 F 07/23/19 14:22 Pulse Rate 64 07/23/19 14:22 Respiratory Rate 18 07/23/19 14:22 Blood Pressure 146/79 07/23/19 14:22 O2 Sat by Pulse Oximetry (%) 98 07/23/19 09:00 Constitutional: Yes: Mild Distress Eyes: Yes: WNL HENT: Yes: WNL Neck: Yes: WNL Cardiovascular: Yes: Regular Rate and Rhythm Respiratory: Yes: WNL Gastrointestinal: Yes: WNL Genitourinary: Yes: WNL Musculoskeletal: Yes: Muscle Weakness Extremities: Yes: Other Integumentary: Yes: Pressure Ulcer Wound/Incision: Yes: Dressing Dry and Intact Neurological: Yes: Paresthesia, Pre-Existing Deficit ...Motor Strength: LLE, RLE Psychiatric: Yes: WNL Labs: CBC, BMP 07/23/19 07:01 07/23/19 07:01 INR, PTT INR 1.03 (0.83-1.09) 07/19/19 08:00 Problem List - Problems (1) Diabetes mellitus Code(s): E11.9 - TYPE 2 DIABETES MELLITUS WITHOUT COMPLICATIONS Qualifiers: Diabetes mellitus complication status: with diabetic arthropathy (2) Diabetic foot ulcer Code(s): E11.621 - TYPE 2 DIABETES MELLITUS WITH FOOT ULCER; L97.509 - NON- PRESSURE CHRONIC ULCER OTH PRT UNSP FOOT W UNSP SEVERITY Qualifiers: Diabetic foot ulcer location: unspecified part of foot Diabetes mellitus type: other specified (including ELSI) Laterality: left Non-pressure ulcer stage: unspecified non-pressure ulcer stage Qualified Code(s): E13.621 - Other specified diabetes mellitus with foot ulcer; L97.529 - Non-pressure chronic ulcer of other part of left foot with unspecified severity (3) HTN (hypertension) Code(s): I10 - ESSENTIAL (PRIMARY) HYPERTENSION (4) Renal insufficiency Code(s): N28.9 - DISORDER OF KIDNEY AND URETER, UNSPECIFIED Assessment/Plan DR WISDOM DEBRIDED LEFT FOOT NECROTIC TISSUE AND BLISTEERRS FOLLOW UP IS APPRECIATED. IV ABX PER ID DM CONTROLL D/W PATIENT AND COMPLIANCE ENDOCRINE FOLLOW UP ADHERENCE AND COMPLIANCE AGAIN STRESSED TO FOLLOW WITH HIS PRIMARY DOCTOR ALSO. WOUND CENTER F/U DVT PROPHYLAXIS OOB TO CHAIR
[2019-07-24] MEDS ORDERED: DEXTROSE 5%-WATER 100 ML IVPB ONE ×2 (01:05→08:51)
[2019-07-24] MEDS ORDERED: PIPERACILLIN/TAZOBACTAM 4.5 GM VIAL IVPB ONE ×2 (01:05→08:51)
[2019-07-24] MEDS: PIPERACILLIN/TAZOB 4.5 GM 4.5 GM in DEXTROSE 5%-WATER 100 ML IVPB SCH ×2 (02:00→09:46)
[2019-07-24] MEDS: INSULIN SLIDING SCALE (NOVOLOG) 1 VIAL SQ SCH ×2 (07:21→11:30)
[2019-07-24] MEDS: INSULIN (LEVEMIR) 100 UNITS/ML UNITS SQ SCH (08:58)
[2019-07-24] MEDS: LISINOPRIL 20 MG TABLET (FP) PO SCH (09:00)
[2019-07-24] MEDS: HYDROCHLOROTHIAZIDE 12.5 MG CAPSULE (FP) PO SCH (09:00)
[2019-07-24] MEDS: HEPARIN NA (PORCINE) 5,000 UNITS/ML 1ML VIAL SQ SCH (09:00)
[2019-07-24] MEDS: BACITRACIN 15 GM TUBE TOPICAL OINTMENT TP SCH (09:01)
[2019-07-24] MEDS ORDERED: INSULIN (NOVOLOG) ASPART 100 UNITS/ML 10ML VIAL ONE (11:29)
--- NOTE | 2019-07-24 12:27 | PN ---
Progress Note, Physician - Current Medication List Current Medications: Active Medications Acetaminophen (Tylenol -) 650 mg PO Q4H PRN PRN Reason: PAIN LEVEL 6-10 Last Admin: 07/21/19 05:29 Dose: 650 mg Bacitracin (Bacitracin -) 1 applic TP DAILY [facility] Last Admin: 07/24/19 09:01 Dose: 1 applic Heparin Sodium (Porcine) (Heparin -) 5,000 unit SQ BID [facility] Last Admin: 07/24/19 09:00 Dose: 5,000 unit Hydrochlorothiazide (Hctz -) 12.5 mg PO DAILY [facility] Last Admin: 07/24/19 09:00 Dose: 12.5 mg Vancomycin HCl 1,500 mg/ (Dextrose) 500 mls @ 250 mls/hr IVPB DAILY@1300 [facility]; Protocol Last Admin: 07/23/19 12:30 Dose: 250 mls/hr Piperacillin Sod/Tazobactam (Sod 4.5 gm/ Dextrose) 100 mls @ 200 mls/hr IVPB Q8H-IV [facility]; Protocol Last Admin: 07/24/19 09:46 Dose: 200 mls/hr Insulin Aspart (Novolog Vial Sliding Scale -) 1 vial SQ ACHS [facility]; Protocol Last Admin: 07/24/19 11:30 Dose: 5 units Insulin Detemir (Levemir Vial) 50 units SQ AM [facility] Last Admin: 07/24/19 08:58 Dose: 50 units Lisinopril (Prinivil) 20 mg PO DAILY [facility] Last Admin: 07/24/19 09:00 Dose: 20 mg - Objective Vital Signs: Vital Signs Temperature 98.4 F 07/24/19 10:00 Pulse Rate 67 07/24/19 10:00 Respiratory Rate 18 07/24/19 10:00 Blood Pressure 154/86 07/24/19 10:00 O2 Sat by Pulse Oximetry (%) 100 07/23/19 21:00 Labs: CBC, BMP 07/23/19 07:01 07/23/19 07:01 INR, PTT INR 1.03 (0.83-1.09) 07/19/19 08:00 Problem List - Problems (1) HTN (hypertension) Code(s): I10 - ESSENTIAL (PRIMARY) HYPERTENSION (2) Diabetes mellitus Code(s): E11.9 - TYPE 2 DIABETES MELLITUS WITHOUT COMPLICATIONS Qualifiers: Diabetes mellitus complication status: with diabetic arthropathy (3) Diabetic foot ulcer Code(s): E11.621 - TYPE 2 DIABETES MELLITUS WITH FOOT ULCER; L97.509 - NON- PRESSURE CHRONIC ULCER OTH PRT UNSP FOOT W UNSP SEVERITY Qualifiers: Diabetic foot ulcer location: unspecified part of foot Diabetes mellitus type: other specified (including ELSI) Laterality: left Non-pressure ulcer stage: unspecified non-pressure ulcer stage Qualified Code(s): E13.621 - Other specified diabetes mellitus with foot ulcer; L97.529 - Non-pressure chronic ulcer of other part of left foot with unspecified severity (4) Osteomyelitis Code(s): M86.9 - OSTEOMYELITIS, UNSPECIFIED Qualifiers: Osteomyelitis type: unspecified type Osteomyelitis location: foot Laterality: left Qualified Code(s): M86.9 - Osteomyelitis, unspecified
[2019-07-24] MEDS ORDERED: PT OWN MED DRAWER 7, Y5N ONE (13:01)
[2019-07-24] MEDS: VANCOMYCIN HCL 1,500 MG in DEXTROSE 5%-WATER - 500 ML IVPB SCH (13:09)
[2019-07-24 14:24] VITALS: BP 127/69; PULSE 56; TEMP 97.9
--- NOTE | 2019-07-24 15:31 | PN ---
Progress Note, Physician History of Present Illness: Pt seen and examined at bedside. He is awake and alert. he denies shortness of breath. He denies dysuria or hematuria. - Current Medication List Current Medications: Active Medications Acetaminophen (Tylenol -) 650 mg PO Q4H PRN PRN Reason: PAIN LEVEL 6-10 Last Admin: 07/21/19 05:29 Dose: 650 mg Bacitracin (Bacitracin -) 1 applic TP DAILY [facility] Last Admin: 07/24/19 09:01 Dose: 1 applic Heparin Sodium (Porcine) (Heparin -) 5,000 unit SQ BID [facility] Last Admin: 07/24/19 09:00 Dose: 5,000 unit Hydrochlorothiazide (Hctz -) 12.5 mg PO DAILY [facility] Last Admin: 07/24/19 09:00 Dose: 12.5 mg Vancomycin HCl 1,500 mg/ (Dextrose) 500 mls @ 250 mls/hr IVPB DAILY@1300 [facility]; Protocol Last Admin: 07/24/19 13:09 Dose: 250 mls/hr Piperacillin Sod/Tazobactam (Sod 4.5 gm/ Dextrose) 100 mls @ 200 mls/hr IVPB Q8H-IV [facility]; Protocol Last Admin: 07/24/19 09:46 Dose: 200 mls/hr Insulin Aspart (Novolog Vial Sliding Scale -) 1 vial SQ ACHS [facility]; Protocol Last Admin: 07/24/19 11:30 Dose: 5 units Insulin Detemir (Levemir Vial) 50 units SQ AM [facility] Last Admin: 07/24/19 08:58 Dose: 50 units Lisinopril (Prinivil) 20 mg PO DAILY [facility] Last Admin: 07/24/19 09:00 Dose: 20 mg - Objective Vital Signs: Vital Signs Temperature 97.9 F 07/24/19 14:22 Pulse Rate 56 L 07/24/19 14:22 Respiratory Rate 20 07/24/19 14:22 Blood Pressure 127/69 07/24/19 14:22 O2 Sat by Pulse Oximetry (%) 100 07/23/19 21:00 Constitutional: Yes: Calm Eyes: Yes: Conjunctiva Clear HENT: Yes: Atraumatic Neck: Yes: Supple Cardiovascular: Yes: S1, S2 Respiratory: Yes: CTA Bilaterally Genitourinary: Yes: WNL Musculoskeletal: Yes: WNL Edema: No Wound/Incision: Yes: Dressing Dry and Intact Neurological: Yes: Oriented Psychiatric: Yes: Oriented Labs: CBC, BMP 07/23/19 07:01 07/23/19 07:01 INR, PTT INR 1.03 (0.83-1.09) 07/19/19 08:00 Problem List - Problems (1) Diabetes mellitus Code(s): E11.9 - TYPE 2 DIABETES MELLITUS WITHOUT COMPLICATIONS Qualifiers: Diabetes mellitus complication status: with diabetic arthropathy (2) HTN (hypertension) Code(s): I10 - ESSENTIAL (PRIMARY) HYPERTENSION (3) Renal insufficiency Code(s): N28.9 - DISORDER OF KIDNEY AND URETER, UNSPECIFIED Assessment/Plan Current Medications Generic Name Dose Route Start Last Admin Trade Name Freq PRN Reason Stop Dose Admin Acetaminophen 650 mg 07/20/19 15:49 07/21/19 05:29 Tylenol - PO 650 mg Q4H PRN Administration PAIN LEVEL 6-10 Bacitracin 1 applic 07/22/19 13:00 07/24/19 09:01 Bacitracin - TP 1 applic DAILY [facility] Administration Heparin Sodium (Porcine) 5,000 unit 07/20/19 22:00 07/24/19 09:00 Heparin - SQ 5,000 unit BID [facility] Administration Hydrochlorothiazide 12.5 mg 07/21/19 10:00 07/24/19 09:00 Hctz - PO 12.5 mg DAILY [facility] Administration Vancomycin HCl 1,500 mg/ 500 mls @ 250 mls/hr 07/21/19 13:00 07/24/19 13:09 Dextrose IVPB 250 mls/hr DAILY@1300 [facility] Administration Protocol Piperacillin Sod/Tazobactam 100 mls @ 200 mls/hr 07/20/19 18:00 07/24/19 09: 46 Sod 4.5 gm/ Dextrose IVPB 200 mls/hr Q8H-IV [facility] Administration Protocol Insulin Aspart 1 vial 07/22/19 22:00 07/24/19 11:30 Novolog Vial Sliding Scale - SQ 5 units ACHS [facility] Administration Protocol Insulin Detemir 50 units 07/23/19 07:00 07/24/19 08:58 Levemir Vial SQ 50 units AM [facility] Administration Lisinopril 20 mg 07/21/19 10:00 07/24/19 09:00 Prinivil PO 20 mg DAILY [facility] Administration Impression 1. CKD 2. HTN 3. DM 4. DFU 5. proteinuria Plan - cont manas - renal ultrasound reviewed - UA reviewed - cont abx - will need outpt follow up and workup - avoid nsaids
--- NOTE | 2019-07-24 16:01 | PN ---
Progress Note (short form) - Note Progress Note: s/p operative debridement of the foot abscess 07/20 pod #4 doinng well no fevers Vital Signs Period Temp Pulse Resp BP Sys/Tran Pulse Ox Last 24 Hr 97.6 F-98.4 F 56-88 18-20 127-159/69-86 100 cor-rrr lungs clear foot is clean shallow plantar ulcer, no drainage, no purulence, minimal erythema CBC, BMP 07/23/19 07:01 07/23/19 07:01 Laboratory Tests 07/21/19 08:35 Hemoglobin A1c % 11.3 H MRI- no osteo Microbiology 07/21/19 14:38 Tissue-Other Gram Stain - Final 07/21/19 14:38 Tissue-Other Tissue Culture - Preliminary Streptococcus Mitis Staphylococcus Coagulase Neg 07/21/19 14:38 Tissue-Other Anaerobic Culture - Preliminary Pending Organism#2 07/19/19 22:15 Foot - Left Plantar Gram Stain - Final 07/19/19 22:15 Foot - Left Plantar Wound Culture - Final Alpha Hemolytic Streptococcus Enterococcus Faecalis 07/19/19 08:00 Blood - Peripheral Venous Blood Culture - Final NO GROWTH AFTER 5 DAYS INCUBATION 07/19/19 08:00 Blood - Peripheral Venous Blood Culture - Final NO GROWTH AFTER 5 DAYS INCUBATION 07/19/19 14:40 Foot - Left Plantar Gram Stain - Final 07/19/19 14:40 Foot - Left Plantar Wound Culture - Final Streptococcus Viridans Enterococcus Faecalis Prevotella Bivia imp/reccd diabetic foot infection with abscess-s/p drainage, can switch to po augmentin 875 po bid for one week with close podiatry followup poorly controlled DM, hgba1c over 10
--- NOTE | 2019-07-24 16:37 | DS ---
Physical Examination Vital Signs: Vital Signs Temperature 97.9 F 07/24/19 14:22 Pulse Rate 56 L 07/24/19 14:22 Respiratory Rate 20 07/24/19 14:22 Blood Pressure 127/69 07/24/19 14:22 O2 Sat by Pulse Oximetry (%) 100 07/23/19 21:00 Labs: CBC, BMP 07/23/19 07:01 07/23/19 07:01 Discharge Summary Problems reviewed: Yes Reason For Visit: DIABETIC FOOT ULCER,OSTEOMYELITIS Current Active Problems Diabetes mellitus (Acute) Diabetes mellitus type 2 with hyperosmolarity, uncontrolled (Acute) Diabetic foot ulcer (Acute) HTN (hypertension) (Acute) Osteomyelitis (Acute) Renal insufficiency (Acute) Hospital Course: PCP: Dilip Rodriguez - Admission Chief Complaint: Left Foot Pain History of Present Illness: Patient is a 59 y/o male with past medical history of DM and HTN. Patient present to [facility] ER after having left foot pain and ulcer to bottom of left foot. Prior to ER arrival he said he did not notice that he had an ulcer. Patient states experiencing a throbbing pain to left foot over two weeks that worsened yesterday. He also states noticing a foul smell from his foot 2-3 days ago. Pain exacerbated by pressure and alleviated by Aleve. s/p debridement of foot abscess iv abx now change to po abx saw endocrine in hospital for uncontrolled DM Condition: Fair - Instructions Diet, Activity, Other Instructions: Follow up with this Wednesday or July. take antiobitc twice a day for 7 days Referrals: Kiet Alonso MD [Staff Physician] - Disposition: VNS/HOME HEALTH CARE - Home Medications Comprehensive Discharge Medication List: Ambulatory Orders Insulin (Novolog) [Novolog] 0 units SQ TID 07/19/19 Insulin Degludec [Tresiba Flextouch U-100] 60 unit SQ AM 07/19/19 Lisinopril/Hydrochlorothiazide [Lisinopril-Hctz 20-12.5 mg Tab] 1 tab ONCE 07/19
--- NOTE | 2019-07-24 16:59 | PATH ---
Surgical Pathology Report Patient Name: RENÉ CHAN Med. Rec. #: [id number] /Age/Gender: 1960 (Age: 59) / M Account: [id number] Location: [facility] MED/SURG Taken: 07/20/2019 Received: 07/21/2019 Reported: 07/24/2019 Physicians: Kiet Alonso M.D. Specimen(s) Received DEBRIDED TISSUE LEFT FOOT ULCER Clinical History Superficial abscess left foot Final Diagnosis DEBRIDED TISSUE, FOOT ULCER, LEFT, DEBRIDEMENT: SKIN AND UNDERLYING SUBCUTANEOUS TISSUE WITH MARKED ACUTE AND CHRONIC INFLAMMATION, ULCERATION, AND REACTIVE CHANGES. Electronically Signed Xuan Esparza M.D. Gross Description Received in formalin labeled "debrided tissue left foot ulcer" are multiple irregular, frazier-britt, focally necrotic, ulcerated skin and soft tissue fragments measuring 6 x 6 x 1 cm in aggregate. Alumnae Secretary sections are submitted in one cassette. ENRIQUE/07/21/2019 eric/07/21/2019
== END 2019-07-24 17:47 | disposition home health service (06) | DRG 623 ==
LOC: JER 06:37 → JERBED 10:43 → J6S 17:16 → J7W 07-23 15:27
PROVIDERS: ADMIT Family Medicine; ATTEND Family Medicine
PROC: 0JBR0ZZ Excision of Left Foot Subcutaneous Tissue and Fascia, Open Approach (ICD-10-PCS; principal; 2019-07-20 14:00)
DX: E11.621 Type 2 diabetes mellitus with foot ulcer (principal); L02.612 Cutaneous abscess of left foot; M86.9 Osteomyelitis, unspecified; I10 Essential (primary) hypertension; L97.529 Non-pressure chronic ulcer of other part of left foot with unspecified severity; E11.65 Type 2 diabetes mellitus with hyperglycemia; E11.69 Type 2 diabetes mellitus with other specified complication; Z79.4 Long term (current) use of insulin; I12.9 Hypertensive chronic kidney disease with stage 1 through stage 4 chronic kidney disease, or unspecified chronic kidney disease; N18.9 Chronic kidney disease, unspecified
CPT/HCPCS: 36415; 71045-TC-FY; 73630-TC-LT; 73718-TC-LT; 76775-TC; 80048; 80053; 80061; 81003; 82570; 82962; 83036; 83721; 84156; 84436; 84443; 85025; 85027; 85610; 85651; 86140; 87040; 87070; 87075; 87186; 87205; 88304-TC; 93005; 93010; 93971-TC; 94760; 97116-GP; 97161-GP; 99283-25; G0480; J1644; Q2036

== ENCOUNTER 2021-08-12 04:38 | Day surgery (SDC) | payer OTHER ==
[2021-08-06 14:55] VITALS: BMI 29.2
[2021-08-12 08:57] VITALS: TEMP 97.5
[2021-08-12 09:32] VITALS: BP 125/84; PULSE 71
== END 2021-08-12 09:36 | disposition home or self-care (01) ==
LOC: JASU-ENDO 04:38
PROVIDERS: ATTEND Internal Medicine Gastroenterology
PROC: 0DB48ZX Excision of Esophagogastric Junction, Via Natural or Artificial Opening Endoscopic, Diagnostic (ICD-10-PCS; 2021-08-12)
PROC: 0DB68ZX Excision of Stomach, Via Natural or Artificial Opening Endoscopic, Diagnostic (ICD-10-PCS; 2021-08-12)
PROC: 0DBN8ZX Excision of Sigmoid Colon, Via Natural or Artificial Opening Endoscopic, Diagnostic (ICD-10-PCS; principal; 2021-08-12 08:00)
DX: Z12.11 Encounter for screening for malignant neoplasm of colon (principal); K57.30 Diverticulosis of large intestine without perforation or abscess without bleeding; K63.89 Other specified diseases of intestine; D12.7 Benign neoplasm of rectosigmoid junction; K64.8 Other hemorrhoids; D64.9 Anemia, unspecified; K29.50 Unspecified chronic gastritis without bleeding; K44.9 Diaphragmatic hernia without obstruction or gangrene; K21.00 Gastro-esophageal reflux disease with esophagitis, without bleeding; E11.9 Type 2 diabetes mellitus without complications; I10 Essential (primary) hypertension

== ENCOUNTER 2022-05-11 07:27 | Emergency (ER) | payer OTHER ==
[2022-05-11 07:44] VITALS: RESP 18; TEMP 97.7; BMI 29.5
[2022-05-11] MEDS ORDERED: LIDOCAINE 5% TOPICAL PATCH TP ONE (08:56)
[2022-05-11] MEDS ORDERED: IBUPROFEN 600 MG TABLET (FP) PO ONE ×3 (08:56→09:47)
[2022-05-11] MEDS ORDERED: LIDOCAINE 5% TOPICAL PATCH ONE (09:47)
[2022-05-11 10:02] VITALS: BP 190/86; PULSE 66
[2022-05-11] MEDS ORDERED: LIDOCAINE PATCH REMOVAL MC ONE (22:00)
== END 2022-05-11 10:00 | disposition home or self-care (01) ==
LOC: JER 07:27
DX: M25.511 Pain in right shoulder (principal); V49.40XA Driver injured in collision with unspecified motor vehicles in traffic accident, initial encounter
CPT/HCPCS: 73030-TC-RT-FY; 99283-25

== ENCOUNTER 2025-07-02 15:17 | Emergency (ER) | payer OTHER, BC ==
[2025-07-02 15:29] VITALS: BP 164/78; PULSE 66; RESP 18; TEMP 97.7; BMI 29.2
== END 2025-07-02 16:30 | disposition home or self-care (01) ==
LOC: JER 15:17
DX: M21.611 Bunion of right foot (principal)
CPT/HCPCS: 99283-25